=== PATIENT | male | born 1955 | race Caucasian/White ===

== ENCOUNTER 2016-09-06 17:06 | Inpatient (IN) | payer BC ==
[2016-09-06] MEDS ORDERED: traZODone TAB* 50 MG TAB PO PRN (18:29)
[2016-09-06] MEDS ORDERED: oxyCODONE TAB* 5 MG TAB PO PRN (18:35)
[2016-09-06] MEDS ORDERED: Albuterol 2.5 MG/3 ML NEB.SOL* (0.083%) INH PRN (18:36)
[2016-09-06] MEDS ORDERED: cefTRIAXone* 1 GM in NS 0.9% 50 ML BAG IVPB SCH (19:30)
[2016-09-06] MEDS: Metoprolol Succinate XL TAB* 50 MG PO SCH (20:51)
[2016-09-06] MEDS: Morphine TAB Extended Release (*) 15 MG TAB.ER PO SCH (20:51)
[2016-09-06] MEDS: Enoxaparin(*) 40 MG/0.4 ML SYR SUBCUT SCH (20:51)
[2016-09-06] MEDS: NS 0.9% 1000 ML* 1,000 ML IV SCH (21:21)
[2016-09-06] MEDS: Sulfamethox/Trimethoprim DS 800/160* TAB PO SCH (23:52)
[2016-09-07] MEDS: Sulfamethox/Trimethoprim DS 800/160* TAB PO SCH ×4 (05:30→23:24)
[2016-09-07 06:11] LABS: Hematocrit 30 % (42-52); Hemoglobin 9.8 g/dl (14.0-18.0); Mean Corpuscular HGB Conc 32 g/dl (31-36); Mean Corpuscular Hemoglobin 26 pg (27-31); Mean Corpuscular Volume 82 fL (80-94); Mean Platelet Volume 8 um3 (7.4-10.4); Red Cell Distribution Width 16 % (10.5-15); White Blood Count 8.7 10^3/ul (3.5-10.8)
[2016-09-07 06:27] LABS: Albumin 2.8 g/dL (3.2-5.2); BUN/Creatinine Ratio 10.7 (8-20); Calcium 8.5 mg/dL (8.6-10.3); EGFR Non-African American 149.3 (>60); Globulin 3.6 g/dL (2-4); Potassium 3.8 mmol/L (3.5-5.0); Total Bilirubin 0.3 mg/dL (0.2-1.0); Total Protein 6.4 g/dL (6.4-8.9)
[2016-09-07] MEDS: BREO ELLIPTA INH SCH (08:24)
[2016-09-07] MEDS ORDERED: predniSONE TAB* 20 MG PO SCH (08:30)
[2016-09-07] MEDS: NS 0.9% 1000 ML* 1,000 ML IV SCH ×2 (08:34→22:35)
[2016-09-07] MEDS: CMCS: Glimepiride (NF) 2 MG TAB PO SCH (08:40)
[2016-09-07] MEDS: CMCS: Sitagliptin (NF) 50 MG TAB PO SCH ×2 (08:40→18:03)
[2016-09-07] MEDS: metFORMIN* 1,000 MG TAB PO SCH ×2 (08:40→18:03)
[2016-09-07] MEDS: Atorvastatin* 20 MG TAB PO SCH (08:41)
[2016-09-07] MEDS: Azithromycin TAB* 250 MG PO SCH (08:41)
[2016-09-07] MEDS: Venlafaxine EXT RELEASE CAP* 75 MG PO SCH (08:41)
[2016-09-07] MEDS: Valsartan TAB* 160 MG PO SCH (08:41)
[2016-09-07] MEDS: Morphine TAB Extended Release (*) 15 MG TAB.ER PO SCH ×2 (08:42→20:59)
[2016-09-07] MEDS: Metoprolol Succinate XL TAB* 50 MG PO SCH ×2 (08:43→20:59)
--- NOTE | 2016-09-07 09:03 | CONS ---
PULMONARY CONSULTATION REPORT: DATE OF CONSULT: 09/07/16 REASON FOR CONSULT: Evaluation of hypoxemia and CT chest abnormalities. HISTORY OF PRESENT ILLNESS: The patient is a 61-year-old male with history of stage III to IV lung cancer. Initially diagnosed in 2015. The patient had bronchoscopy in October 2015. Biopsy revealed squamous cell carcinoma. Subsequent PET scan showed right perihilar mass, consolidation in right middle lobe, involvement of small area next to left pectoralis and left lower neck and uptake in lower neck. The patient had repeat bronchoscopy and EBUS, which showed benign station 7 lymph node. He was not a surgical candidate secondary to mass invading the right atrial wall with occlusion of superior pulmonary vein and right middle lobe pulmonary artery. The patient subsequently underwent chemotherapy with carbo/Taxol and radiation. He was started on docetaxel/ramucirumab, status post cycle 2 on 08/21/16. The patient has been having fevers and chills, which continued in spite of being treated with Augmentin. The patient was seen by Oncology yesterday for fevers of 101 not improved with Augmentin, chills. Sputum cultures grew H. flu and yeast with normal adeline. He did not have evidence of neutropenia. He was also found to be hypoxemic and cyanotic with O2 sat 88% on room air. The patient denied extremity swelling. He denied diplopia, headaches. Denied hot flashes or night sweats. Had tender left axilla status post radiation. Had dyspnea on exertion, but is gradually worsening. The patient denied chest pain, palpitations, nausea , vomiting, change in bowel habits, heartburn, dysuria, urinary symptoms, and lower extremity edema. He did complain of myalgias. The patient was seen and examined at bedside this morning. The patient is currently on O2 supplementation at 8 L per minute. The patient had CT scan of the chest performed, which was personally reviewed by me - patient did not have evidence of pulmonary embolism. The patient noted to have significant bilateral interstitial and alveolar opacities with some dense consolidations in the dependent areas. The patient also with right infrahilar mass, in the right middle lobe and right loculated pleural effusion, which has not changed compared to the prior CT scan. The patient's left axillary mass is slightly decreased in size. The patient was started on Rocephin, Zithromax for possible community-acquired pneumonia. He was also started on prednisone and Bactrim for presumed PCP pneumonia. PAST MEDICAL HISTORY: 1. Lung cancer diagnosed recently, on chemo. 2. Diabetes. 3. Hypercholesterolemia. 4. Hypertension. PAST SURGICAL HISTORY: 1. Hernia repair in 2015. 2. Shoulder repair in 1975. MEDICATIONS: 1. Albuterol nebulization. 2. Augmentin. 3. Breo. 4. Cannabis. 5. CPAP at night. 6. Dexamethasone 4 mg. 7. Glimepiride. 8. Janumet. 9. Metoprolol. 10. Morphine. 11. Oxycodone. 12. Simvastatin. 13. Valsartan. 14. Venlafaxine. 15. Xanax. FAMILY HISTORY: Mother with lung cancer at age 74. SOCIAL HISTORY: He is . Lives with his . He is a former smoker. Smoked 2 packs per day for 40 years, quit in September 2015. Prior cocaine use, quit 7 years ago. No alcohol abuse. REVIEW OF SYSTEMS: As described above in HPI. PHYSICAL EXAMINATION: The patient in bed in no apparent distress. Vital Signs : Temperature 97.6, pulse 87 beats per minute, respiratory rate 16, O2 sat 94% on 8 L, blood pressure 143/63. HEENT: Pupils equal, reactive to light. Mucous membranes moist. Neck: Supple. No palpable masses. Lymphatic: Palpable 1 to 2 cm left axillary mass. Respiratory: Diminished air entry bilaterally, decreased at bases. Scattered wheeze present. Cardiovascular: Regular rate and rhythm. No murmurs, gallops, or rubs. Abdomen: Soft, nontender, nondistended. Bowel sounds present. Musculoskeletal: Normal range of motion. Neurologic: No focal deficits. Skin: No rash or bruises. DIAGNOSTIC STUDIES/LAB DATA: WBC count 8.7, hemoglobin 9.8, hematocrit 30, platelet count 227. No evidence of neutropenia. Sodium 135, potassium 3.8, chloride 94, bicarb 35, BUN 6, creatinine 0.5, lactic acid 1.6 recently, LDH was not elevated, it was 232. Sputum cultures recently grew haemophilus influenza, susceptibilities are pending. CT of the chest as described above in HPI. IMPRESSION AND RECOMMENDATIONS: 61-year-old male with advanced lung cancer, on chemotherapy, received radiation with worsening fevers, hypoxemia, bilateral interstitial and alveolar opacities. Differentials include infectious cause, viral, bacterial, less likely to be fungal versus inflammatory vs side effect of chemo. Given normal LDH, less likely to be on PCP pneumonia. Being treated for community-acquired pneumonia. Continue with O2 supplementation. Will monitor the patient closely. I did not think he needs bronchoscopy at this time. He also has possible COPD, has wheezing on auscultation. Continue with prednisone with slow taper. Will consider bronchoscopy, if the patient's status continues to decline. Thank you for allowing me to participate in the care of your patient. Will follow up with you. [id number]/[facility] #: [id number] KATE
--- NOTE | 2016-09-07 09:41 | PN ---
Progress Note - Progress Note SOAP: Subjective: []Better then yesterday. Complaint of one week increased SOB, chills and fevers at home. Progressive. No chills last night. Using CPAP. Albuterol (Ventolin 2.5 Mg/3 Ml Neb.Irina*) 2.5 mg INH Q6H PRN PRN Reason: SHORTNESS OF BREATH Alprazolam (Xanax Tab*) 0.5 mg PO TID PRN PRN Reason: ANXIETY Atorvastatin Calcium (Lipitor*) 20 mg PO DAILY [facility] Last Admin: 09/07/16 08:41 Dose: 20 mg Azithromycin (Zithromax Tab*) 500 mg PO DAILY [facility] Stop: 09/11/16 09:01 Last Admin: 09/07/16 08:41 Dose: 500 mg Enoxaparin Sodium (Lovenox(*)) 40 mg SUBCUT Q24H [facility] Last Admin: 09/06/16 20:51 Dose: 40 mg Glimepiride (Glimepiride (Nf)) 2 mg PO DAILY WITH MEAL [facility] Last Admin: 09/07/16 08:40 Dose: 2 mg Sodium Chloride (Ns 0.9% 1000 Ml*) 1,000 mls @ 75 mls/hr IV PER RATE [facility] Last Admin: 09/07/16 08:34 Dose: 75 mls/hr Metformin HCl (Glucophage*) 1,000 mg PO BID WITH MEALS [facility] Last Admin: 09/07/16 08:40 Dose: 1,000 mg Metoprolol Succinate (Toprol Xl Tab*) 50 mg PO BID [facility] Last Admin: 09/07/16 08:43 Dose: 50 mg Morphine Sulfate (Ms Contin(*)) 15 mg PO BID [facility] Last Admin: 09/07/16 08:42 Dose: 15 mg Breo Ellipta 200-25 (Mcg/Inh) 1 admin INH DAILY [facility] Last Admin: 09/07/16 08:24 Dose: Not Given Oxycodone HCl (Roxycodone Tab*) 10 mg PO BID PRN PRN Reason: PAIN Prednisone (Deltasone Tab*) 60 mg PO DAILY WITH MEAL [facility] Sitagliptin Phosphate (Januvia (Nf)) 50 mg PO BID WITH MEALS [facility] Last Admin: 09/07/16 08:40 Dose: 50 mg Trazodone HCl (Desyrel Tab*) 25 mg PO BEDTIME PRN PRN Reason: SLEEP Trimethoprim/Sulfamethoxazole (Bactrim Ds 800/160 Tab*) 2 tab PO Q6HR [facility] Last Admin: 09/07/16 05:30 Dose: 2 tab Valsartan (Diovan Tab*) 320 mg PO DAILY [facility] Last Admin: 09/07/16 08:41 Dose: 320 mg Venlafaxine HCl (Effexor Xr Cap*) 75 mg PO DAILY WITH MEAL [facility] Last Admin: 09/07/16 08:41 Dose: 75 mg Objective: [] Vital Signs Temp Pulse Resp BP Pulse Ox 97.6 F 86 20 135/71 92 09/07/16 04:09 09/07/16 07:26 09/07/16 08:42 09/07/16 07:26 09/07/16 07:26 HEENT - Pale, no thrush. Lungs - Exp wheeze, no crackles, good air movement Car RRR S1S2 Abd - obese, NT/ND Ext - +1 clubbing, no cyanosis. CT bilateral pneumonitis. Decreased LAD. Assessment: [] 61 year old stave IV lung cancer status post progression on nivolumab (last treated 07/03/16) and now on docetaxel and ramcirumab. Presents with diffuse aveolar disease. Differential is CAP, PCP, viral pneumonitis, delayed reaction to nivolumab. Improving on steroids and antibiotics. Plan: []1. Will continue antibiotics. I believe he will be covered for CAP with high dose Bactrim and Azithro, will d/c Ceftriaxone. ID consult pending. 2. Resp. Stable to improved and no distress on exam. Appreciate Pulm input. Given concern for nivolumab reaction will increase Prednisone to 60 mg daily. Continue CPAP. 3. DM. On oral agents, follow on increased steroids. 4. HTN, follow.
--- NOTE | 2016-09-07 12:58 | CONS ---
CONSULTATION REPORT: DATE OF CONSULT: 09/07/16. REQUESTING PHYSICIAN: Cr Cardona MD. CONSULTING SERVICE: Infectious Disease. REASON FOR CONSULT: Pneumonia and respiratory failure. IMPRESSION: 1. Acute hypoxemic respiratory failure, present on admission in the setting of chronic hypercarbic respiratory failure. 2. Pneumonia in the setting of immunocompromised state by monoclonal antibody, chemotherapy, recent radiation and lung cancer; differential diagnosis includes the usual organisms of community-acquired pneumonia including pneumococcus, haemophilus, viral organisms, in this case human metapneumovirus and adenovirus are high on the list. Pneumocystis is a consideration given a diffuse interstitial pattern of his infiltrates; however, the LDH was normal at 230 which argues against it a little bit. Other fungal organisms seem less likely given pattern of cryptococcus is always a consideration in these cases. Nothing supporting a mycobacterial infection. 3. Stage 4 lung cancer, small cell carcinoma, initially diagnosed with right perihilar mass, right plural effusion treated with radiation, carbo/Taxol and most recently docetaxel/ramucirumab. He has a right chest port. 4. Chronic obstructive pulmonary disease. 5. Obstructive sleep apnea. RECOMMENDATIONS: Continue Bactrim and prednisone to cover pneumocystis, which is still possibility or continue azithromycin for the atypical bacterial pathogens and will add human metapneumovirus nasopharyngeal swab, and a serum cryptococcal antigen. HISTORY OF PRESENT ILLNESS: This is a 61-year-old male with squamous cell carcinoma of the lung, stage 4, treated with chemotherapy and radiation, which has improved with chronic corticosteroids. He had about 10 days ago developed fever to 102, which was daily with drenching sweats and rigors. He was not having his port access during that time. Those kind of resolved on their own after a couple of days and then he developed worsening dyspnea on exertion and even dyspnea at rest as of yesterday. He was seen by Yessi Chavez and was started on Augmentin as an outpatient. He is not sure if the fever got better before or after he started that. He also had a sputum culture that grew haemophilus and yeast, a blood culture that was negative on the . Throat swab grew yeast. He had a chest x-ray done as an outpatient that showed progressive airspace disease of the right lower lung morris. A CT of the test was done on the that showed no pulmonary embolus, bilateral interstitial and alveolar infiltrates. To my read looked more likely upper lung morris and there is also the right infrahilar mass with consolidative change in the right middle lobe and a loculated pleural effusion, which is chronic. There is interval decrease in the left axillary mass size. He was started on ceftriaxone, azithromycin, prednisone, and Bactrim. I discussed the case with HIMANSHU Arteaga last night. Today, since he has been here he has had no fever, his breathing feels a little bit more comfortable , he has not had a cough and no chest pain, he has had no neck pain, no difficulty with port, and no urinary symptoms include no dysuria or frequency. No diarrhea. PAST MEDICAL HISTORY: 1. Squamous cell carcinoma of the lung, stage 4 treated with radiation and chemotherapy as above. 2. COPD with chronic hypercarbic respiratory failure. 3. Obstructive sleep apnea on CPAP. 4. Diabetes. 5. Hyperlipidemia. 6. Hypertension. 7. Status post hernia repair. 8. Status post shoulder repair. MEDICATIONS: 1. Xanax p.r.n. 2. Albuterol. 3. Lipitor. 4. Azithromycin 500 mg by mouth daily. 5. Glimepiride. 6. Metoprolol. 7. Bactrim Double Strength tablets by mouth every 6 hours. 8. Valsartan. 9. Effexor. 10. Metformin. 11. Trazodone. 12. Prednisone 60 mg a day. ALLERGIES: PENICILLIN. FAMILY HISTORY: No tuberculosis or recurrent infections. SOCIAL HISTORY: He lives in [place] with his . He has no travel. No sick contacts. He is a former smoker. REVIEW OF SYSTEMS: All negative except as noted above. PHYSICAL EXAM: Vital Signs: Temperature 36, heart rate 80, respiratory rate 20 , blood pressure 130/70, O2 sat 92% on room air. General: He is awake, not in distress. Neurologic: He is oriented x3. Follows all commands. HEENT: There is no conjunctival hemorrhage. No thrush. Neck: Supple without nuchal rigidity. Lymph Nodes: There is no cervical or inguinal lymphadenopathy. Heart : Regular rate and rhythm without murmurs, rubs, or gallops. Lungs: There are diminished breath sounds at the bases bilaterally without wheezes, rales, or rhonchi. Abdomen: Soft, nontender, and nondistended. It is obese. There are bowel sounds present. Skin: There are no rashes or splinter hemorrhages. Musculoskeletal: No spinal tenderness to palpation. No joint synovitis. DIAGNOSTIC STUDIES/LAB DATA: White blood cell count 8, hemoglobin 9, and platelets 227. Creatinine is 0.5, ALT 23. We will add on a CRP to the yesterday 's labs. Please see impression and recommendations outlined above as discussed with HIMANSHU Arteaga [id number]/[facility] #: [id number] [facility]
[2016-09-07] MEDS: ALPRAZolam TAB* 0.5 MG PO PRN (18:07)
[2016-09-07] MEDS: Enoxaparin(*) 40 MG/0.4 ML SYR SUBCUT SCH (21:00)
[2016-09-08] MEDS: Sulfamethox/Trimethoprim DS 800/160* TAB PO SCH ×3 (05:58→17:36)
[2016-09-08 06:24] LABS: Hematocrit 28 % (42-52); Hemoglobin 8.8 g/dl (14.0-18.0); Mean Corpuscular HGB Conc 31 g/dl (31-36); Mean Corpuscular Hemoglobin 26 pg (27-31); Mean Corpuscular Volume 82 fL (80-94); Mean Platelet Volume 8 um3 (7.4-10.4); Red Blood Count 3.42 10^6/ul (4.0-5.4); Red Cell Distribution Width 17 % (10.5-15); White Blood Count 9.1 10^3/ul (3.5-10.8)
[2016-09-08 06:35] LABS: Albumin 2.7 g/dL (3.2-5.2); BUN/Creatinine Ratio 14.8 (8-20); Calcium 8.4 mg/dL (8.6-10.3); EGFR African American 200.3 (>60); EGFR Non-African American 155.7 (>60); Globulin 3.3 g/dL (2-4); Potassium 4.2 mmol/L (3.5-5.0); Total Bilirubin 0.2 mg/dL (0.2-1.0)
[2016-09-08] MEDS: BREO ELLIPTA INH SCH (08:10)
[2016-09-08] MEDS: Venlafaxine EXT RELEASE CAP* 75 MG PO SCH (10:55)
[2016-09-08] MEDS: CMCS: Sitagliptin (NF) 50 MG TAB PO SCH ×2 (10:56→17:35)
[2016-09-08] MEDS: Azithromycin TAB* 250 MG PO SCH (10:57)
[2016-09-08] MEDS: Valsartan TAB* 160 MG PO SCH (10:57)
[2016-09-08] MEDS: Atorvastatin* 20 MG TAB PO SCH (10:57)
[2016-09-08] MEDS: CMCS: Glimepiride (NF) 2 MG TAB PO SCH (10:58)
[2016-09-08] MEDS: metFORMIN* 1,000 MG TAB PO SCH ×2 (10:58→17:36)
[2016-09-08] MEDS: predniSONE TAB* 20 MG PO SCH (10:58)
[2016-09-08] MEDS: Morphine TAB Extended Release (*) 15 MG TAB.ER PO SCH ×2 (10:58→22:07)
[2016-09-08] MEDS: Metoprolol Succinate XL TAB* 50 MG PO SCH ×2 (10:58→22:08)
--- NOTE | 2016-09-08 11:10 | DS ---
DATE OF ADMISSION: 09/06/2016. DATE OF PENDING DISCHARGE: 09/08/2016. PRINCIPAL DIAGNOSES: 1. Atypical pneumonia. 2. COPD exacerbation. 3. History of diabetes type 2. 4. Lung cancer, primary with metastases, under Ramucirumab chemotherapy. DISCHARGE MEDICATIONS: 1. Albuterol nebulizers as previously at home. 2. Alprazolam 0.5 mg p.o. t.i.d. prn anxiety. 3. Atorvastatin 20 mg daily. 4. Azithromycin 500 mg daily. 5. Glimepiride 2 mg p.o. with meals daily. 6. Metformin 1000 mg p.o. b.i.d. with meals. 7. Toprol XL 50 mg b.i.d. 8. Morphine sulfate 15 mg p.o. b.i.d. 9. Breo Ellipta one administration daily inhaled. 10. Oxycodone 10 mg p.o. b.i.d. prn pain. 11. Deltasone 60 mg p.o. daily with meals. 12. Januvia 50 mg p.o. b.i.d. with meals. 13. Bactrim DS two tabs every 6 hours times 10 additional days with the Azithromycin. 14. Valsartan 320 mg daily. 15. Effexor XL 75 mg daily with meals. HOSPITAL COURSE: Briefly, the patient was admitted to the hospital with increasing hypoxia, felt to be in mild respiratory failure with possible atypical pneumonia. Infectious Disease consult was inhenri amezquita, along with a Pulmonary consult as well with Dr. Nguyen. The patient was placed on IV antibi otics, triple to begin with and later stepped down to Bactrim and Azithromycin, along with high dose steroid and the patient improved significantly. His labs remained significantly stable throughout the course of his hospital stay, including his blood glucoses which ranged somewhere on the order of 119 to 234 with steroids. The patient did have a consult with Pulmonary who felt that if his condi tion worsened over his hospital stay, he would be a candidate for a bronchoscopy. Otherwise, they w ould not intervene at this time. The patient reports that he has significant oxygen with humidifica tion at home to maintain his O2 sats somewhere around 90 percent and he does have an oximeter to nicholas t for that. In addition, he will monitor his blood glucoses with a no concentrated sweet diet and c ontinue his oral medications and follow-up with Dr. Gonzáles next week regarding his pneumonia. He will be off his Ramucirumab until his pneumonia improves enough for him to have an additional chemot herapy and he is to call with any further temperatures or increasing symptoms once discharged. HIMANSHU CARABALLO [id number]/[facility] #: [id number]
[2016-09-08] MEDS: NS 0.9% 1000 ML* 1,000 ML IV SCH (12:20)
[2016-09-08] MEDS: ALPRAZolam TAB* 0.5 MG PO PRN ×2 (17:36→22:11)
[2016-09-08] MEDS: Enoxaparin(*) 40 MG/0.4 ML SYR SUBCUT SCH (22:08)
[2016-09-09] MEDS: Sulfamethox/Trimethoprim DS 800/160* TAB PO SCH ×4 (00:47→18:04)
[2016-09-09] MEDS: NS 0.9% 1000 ML* 1,000 ML IV SCH (04:56)
[2016-09-09 07:40] LABS: Hematocrit 31 % (42-52); Hemoglobin 9.7 g/dl (14.0-18.0); Mean Corpuscular HGB Conc 31 g/dl (31-36); Mean Corpuscular Hemoglobin 25 pg (27-31); Mean Corpuscular Volume 82 fL (80-94); Mean Platelet Volume 8 um3 (7.4-10.4); Red Blood Count 3.83 10^6/ul (4.0-5.4); Red Cell Distribution Width 16 % (10.5-15)
[2016-09-09 07:57] LABS: Albumin 2.9 g/dL (3.2-5.2); BUN/Creatinine Ratio 13.3 (8-20); Calcium 8.8 mg/dL (8.6-10.3); EGFR African American 177.4 (>60); EGFR Non-African American 137.9 (>60); Globulin 3.5 g/dL (2-4); Potassium 4.4 mmol/L (3.5-5.0); Total Bilirubin 0.2 mg/dL (0.2-1.0); Total Protein 6.4 g/dL (6.4-8.9)
[2016-09-09] MEDS: BREO ELLIPTA INH SCH (08:42)
[2016-09-09] MEDS: CMCS: Sitagliptin (NF) 50 MG TAB PO SCH ×2 (08:44→18:04)
[2016-09-09] MEDS: CMCS: Glimepiride (NF) 2 MG TAB PO SCH (08:44)
[2016-09-09] MEDS: predniSONE TAB* 20 MG PO SCH (08:45)
[2016-09-09] MEDS: metFORMIN* 1,000 MG TAB PO SCH (08:45)
[2016-09-09] MEDS: Metoprolol Succinate XL TAB* 50 MG PO SCH ×2 (08:46→21:08)
[2016-09-09] MEDS: Venlafaxine EXT RELEASE CAP* 75 MG PO SCH (08:47)
[2016-09-09] MEDS: Atorvastatin* 20 MG TAB PO SCH (08:47)
[2016-09-09] MEDS: Valsartan TAB* 160 MG PO SCH (08:47)
[2016-09-09] MEDS: Azithromycin TAB* 250 MG PO SCH (08:47)
[2016-09-09] MEDS: Morphine TAB Extended Release (*) 15 MG TAB.ER PO SCH ×2 (08:52→21:09)
--- NOTE | 2016-09-09 09:08 | PN ---
Progress Note - Progress Note SOAP: Subjective: []No different, breathing about the same. Feeling ok except for this high HR. No chest pain. Remains on O2. Says he had a high HR in past and was seen by cardiology. Albuterol (Ventolin 2.5 Mg/3 Ml Neb.Irina*) 2.5 mg INH Q6H PRN PRN Reason: SHORTNESS OF BREATH Alprazolam (Xanax Tab*) 0.5 mg PO TID PRN PRN Reason: ANXIETY Last Admin: 09/08/16 22:11 Dose: 0.5 mg Atorvastatin Calcium (Lipitor*) 20 mg PO DAILY [facility] Last Admin: 09/09/16 08:47 Dose: 20 mg Azithromycin (Zithromax Tab*) 500 mg PO DAILY [facility] Stop: 09/11/16 09:01 Last Admin: 09/09/16 08:47 Dose: 500 mg Enoxaparin Sodium (Lovenox(*)) 40 mg SUBCUT Q24H [facility] Last Admin: 09/08/16 22:08 Dose: 40 mg Glimepiride (Glimepiride (Nf)) 2 mg PO DAILY WITH MEAL [facility] Last Admin: 09/09/16 08:44 Dose: 2 mg Sodium Chloride (Ns 0.9% 1000 Ml*) 1,000 mls @ 75 mls/hr IV PER RATE [facility] Last Admin: 09/09/16 04:56 Dose: 75 mls/hr Metformin HCl (Glucophage*) 1,000 mg PO BID WITH MEALS [facility] Last Admin: 09/09/16 08:45 Dose: 1,000 mg Metoprolol Succinate (Toprol Xl Tab*) 50 mg PO BID [facility] Last Admin: 09/09/16 08:46 Dose: 50 mg Morphine Sulfate (Ms Contin(*)) 15 mg PO BID [facility] Last Admin: 09/09/16 08:52 Dose: 15 mg Breo Ellipta 200-25 (Mcg/Inh) 1 admin INH DAILY [facility] Last Admin: 09/09/16 08:42 Dose: Not Given Oxycodone HCl (Roxycodone Tab*) 10 mg PO BID PRN PRN Reason: PAIN Prednisone (Deltasone Tab*) 60 mg PO DAILY WITH MEAL [facility] Last Admin: 09/09/16 08:45 Dose: 60 mg Sitagliptin Phosphate (Januvia (Nf)) 50 mg PO BID WITH MEALS [facility] Last Admin: 09/09/16 08:44 Dose: 50 mg Trazodone HCl (Desyrel Tab*) 25 mg PO BEDTIME PRN PRN Reason: SLEEP Trimethoprim/Sulfamethoxazole (Bactrim Ds 800/160 Tab*) 2 tab PO Q6HR [facility] Last Admin: 09/09/16 07:21 Dose: 2 tab Valsartan (Diovan Tab*) 320 mg PO DAILY [facility] Last Admin: 09/09/16 08:47 Dose: 320 mg Venlafaxine HCl (Effexor Xr Cap*) 75 mg PO DAILY WITH MEAL [facility] Last Admin: 09/09/16 08:47 Dose: 75 mg Objective: [] Vital Signs Temp Pulse Resp BP Pulse Ox 97.4 F 132 16 120/82 98 09/09/16 08:09 09/09/16 08:09 09/09/16 08:52 09/09/16 08:09 09/09/16 08:09 HEENT - pale, no thrush, moist + crackles at base, no wheezing HR tachy but appears regular. Abd - obese, NT/ND Ext with good pulses and warm Assessment: [] 61 year old stave IV lung cancer status post progression on nivolumab (last treated 07/03/16) and now on docetaxel and ramcirumab. Presents with diffuse aveolar disease. Differential is CAP, PCP, viral pneumonitis, delayed reaction to nivolumab. Improving on steroids and antibiotics. Now with tachycardia over last 24 hrs despite Metoprolol 50 mg po bid. Ddx: steriods and anemia, volume overload, PE (CTA negative on admission), recurrent SVT. Plan: []1. Will continue antibiotics. I believe he will be covered for CAP with high dose Bactrim and Azithro. - Plan d/c on home antibiotics once improved. 2. Cardiac. Will check Echo and check BNP. Hold IVF. Cardiology consulted. Continue Metoprolol. Will re-check CTA 3. DM. On oral agents, follow on increased steroids. 4. Resp. Continue steroids.
[2016-09-09] MEDS ORDERED: predniSONE TAB* 20 MG ONE (09:16)
[2016-09-09] MEDS: ALPRAZolam TAB* 0.5 MG PO PRN (09:21)
[2016-09-09] MEDS ORDERED: Iodixanol* (CONTRAST) 320 MG/ML 100 ML SDV IV ONE ×2 (09:47→11:55)
--- NOTE | 2016-09-09 12:54 | RAD ---
Indication: Shortness of breath, tachycardia. Contrast: Administered 80.3 ml of VISIPAQUE 320 mg/ml CTA of the chest was performed after IV contrast administration. Coronal and sagittal reconstructed images were obtained. Comparison is made with previous exam dated September 06, 2016. Pulmonary arterial tree is well opacified. There are no filling defects present to suggest pulmonary embolus. There is pleural thickening in the right apex. Aorta demonstrates no aortic dissection or aneurysmal dilatation. Airspace disease is noted in the right upper lobe consistent with pneumonia. Patchy airspace disease in the right lower lobe is noted also consistent with pneumonia. Areas of alveolitis are noted in the left lung field. The axilla demonstrates no evidence of abnormal adenopathy. Heart demonstrates no pericardial effusion. Persistent right infrahilar mass presumably in the right middle lobe causing postobstructive pneumonia and atelectasis. This has been persistent. There is obvious narrowing of the right middle lobe bronchus.. IMPRESSION: NO DEFINITE PULMONARY EMBOLISM IS NOTED. NO SPECIFIC CHANGES NOTED SINCE EXAM DONE 3 DAYS PRIOR. PERSISTENT AIRSPACE DISEASE IS NOTED. SUGGESTION OF A RIGHT MIDDLE LOBE MASS WITH POSTOBSTRUCTIVE ATELECTASIS AND INFILTRATE. PROGRESSIVE INFILTRATES ARE NOTED IN THE RIGHT UPPER LOBE AND RIGHT LOWER LOBE.
[2016-09-09] MEDS: Diltiazem TAB* 30 MG PO SCH ×2 (13:48→21:08)
[2016-09-09] MEDS: Enoxaparin(*) 40 MG/0.4 ML SYR SUBCUT SCH (21:05)
[2016-09-09] MEDS: Metoprolol Succinate XL TAB* 25 MG PO SCH (21:08)
--- NOTE | 2016-09-09 21:38 | CONS ---
CC: Dr. Cardona; Dr. Chery, Cardiology; Dr. Agudelo CARDIOLOGY CONSULT: DATE OF CONSULT: 09/09/16 HISTORY OF PRESENT ILLNESS: I was asked by Dr. Cardona to see this 61-year-old male patient who was kn own to have a squamous cell cancer of the lung, stage IV, hospitalized for pneumonia and was in a pr eparation to be discharged home when he was found to have tachycardia. His EKG showed him to having a heart rate of 130, not a complex tachycardia, possibly in the differential sinus tachycardia, atr ial flutter or SVT. The patient was seen by Dr. Chery from Cardiology standpoint last year and he had cardiac evaluation and at that time, he was seen for abnormal EKG. Part of his evaluation was a Holter monitor. The Holter monitor showed evidence of sinus tachycardia. There are frequent PVCs 6 300 and he had an echo that showed normal left ventricular systolic function with EF 55% to 60%. Mo derate pulmonary hypertension. The echo was done in 02/11/16. The patient does have history of chr onic obstructive pulmonary disease, history of obstructive sleep apnea, stage IV lung cancer and his tory of chemotherapy. He was seen by Pulmonary as well as by ID. He feels much better actual treat ment with antibiotics treatment and initiation of prednisone. He gives no chest pain. No significa nt shortness of breath. No orthopnea, no PNDs. No dizziness. No syncope. No fever. No chills. N o skin rash. No tremors. No hematochezia. No nausea, no vomiting. No abdominal pain. No syncope is appreciated. He gives no history of coronary artery disease, no history of myocardial infarctio n. No history of congestive heart failure. He is actually anxious to go home. PAST MEDICAL HISTORY: Include history of diabetes mellitus; history of hyperlipidemia; hypertension ; status post hernia repair; status post shoulder repair; history of obstructive sleep apnea, on CPA P; history of COPD with chronic hypercarbic respiratory failure; history of squamous cell cancer of the lungs, stage IV, treated with radiation and chemotherapy; history of PVCs; history of tachycardi a. MEDICATIONS: Include: 1. Ventolin. 2. He is also on Lipitor 20 mg daily. 3. Zithromax 500 mg daily. 4. Lovenox 40 mg subcu q.24 hours. 5. Glimepiride 2 mg daily. 6. Metformin 1000 mg twice a day. 7. Metoprolol 50 mg twice a day. 8. Morphine 50 mg b.i.d. 9. Prednisone 60 mg daily. 10. He is also on Januvia 50 mg twice a day. 11. Bactrim 160 mg 2 tablets p.o. q.6 hours. 12. Diovan 320 mg daily. 13. Effexor 75 mg daily. ALLERGIES: PENICILLIN. FAMILY HISTORY: No family history of premature coronary artery disease. SOCIAL HISTORY: He is . He lives with his . He is a mechanic industrial truck. History of smoking. No alcohol. No history of illicit drug use. REVIEW OF SYSTEMS: His review of all other systems essentially is negative. PHYSICAL EXAM: On exam, he is awake, alert and oriented. He is not in acute distress. He is anxio us to go home. Vitals: Blood pressure 120/82, pulse is 120, regular. He is afebrile at 97.4 with a respiratory rate of 18. Head and Neck Exam: Normocephalic, atraumatic. Ear, nose and throat: E ssentially benign. Neck: Supple. JVP is not elevated. No carotid bruits. No masses in the neck i s appreciated. Chest: Clear to auscultation. No rales. No wheeze. No added sounds appreciated. Heart: Normal, regular. S1, S2. No added sounds. No gallops, no rubs. Abdomen: Benign. Posit alexsandra bowel sounds. Extremities: No edema. No cyanosis. No clubbing. Skin exam is normal. Psych: Normal affect and mood. CALL BOX WIRER: No focal deficits appreciated. DIAGNOSTIC STUDIES/LAB DATA: Sodium 136, potassium 4.4, chloride 98, BUN 8, creatinine 0.60, glucos e 116, LFTs normal. Albumin 2.9, globulin 3.5. His white blood cell 13, hemoglobin 9.7, hematocrit 31 and platelets 285. His EKG showed him to be in sinus rhythm. There is narrow complex tachycardia. Heart rate is 133. This was done yesterday at 10:52 at night. There is no repeat this morning. Possibly in the differ ential includes SVT, sinus tach, atrial flutter. IMPRESSION: The patient is a 61-year-old male patient with: 1. Known history of squamous lung cancer stage IV, on chemotherapy, hospitalized with pneumonia. 2. History of frequent PVCs in the past. 3. History of normal left ventricular systolic function done on February 2016. 4. Tachycardia, narrow complex of unclear etiology at the present time. Possible in the differenti al resting sinus tachycardia. 5. Atrial flutter or supraventricular tachycardia. 6. Diabetes mellitus. 7. Hyperlipidemia. 8. Systemic arterial hypertension. 9. Abnormal EKGs as described. 10. Obstructive sleep apnea. 11. Chronic obstructive pulmonary disease. PLAN: We will obtain a TSH level. He was just evaluated by an echo and Holter in the near past in February of last year. I do not think there is a reason to repeat them. I will increase his metopr olol to 75 mg twice a day. I will add Cardizem at a low dose 30 mg twice a day. I agree with obtai bobby CT to rule out pulmonary embolism. I will obtain another EKG for this morning. I think he nee ds to be monitored on the telemetry floor. I will discuss this further with Dr. Cardona accordingly. I answered all his concerns and questions up to satisfaction. More than half at least 60 plus minut e was [id number] in the education, counseling mode explaining all of the above and answering all h is concerns and questions. [id number]/[facility] #: [id number]
[2016-09-10] MEDS: Sulfamethox/Trimethoprim DS 800/160* TAB PO SCH ×5 (00:03→23:39)
[2016-09-10 06:01] LABS: Hematocrit 30 % (42-52); Hemoglobin 9.6 g/dl (14.0-18.0); Mean Corpuscular HGB Conc 32 g/dl (31-36); Mean Corpuscular Hemoglobin 26 pg (27-31); Mean Corpuscular Volume 81 fL (80-94); Mean Platelet Volume 8 um3 (7.4-10.4); Red Blood Count 3.67 10^6/ul (4.0-5.4); Red Cell Distribution Width 16 % (10.5-15); White Blood Count 12.2 10^3/ul (3.5-10.8)
[2016-09-10 06:17] LABS: BUN/Creatinine Ratio 17.2 (8-20); EGFR African American 164.6 (>60); Globulin 3.3 g/dL (2-4); Potassium 4.7 mmol/L (3.5-5.0); Total Bilirubin 0.2 mg/dL (0.2-1.0); Total Protein 6.3 g/dL (6.4-8.9)
[2016-09-10] MEDS: BREO ELLIPTA INH SCH (07:27)
[2016-09-10] MEDS: CMCS: Sitagliptin (NF) 50 MG TAB PO SCH ×2 (09:55→17:46)
[2016-09-10] MEDS: predniSONE TAB* 20 MG PO SCH (09:55)
[2016-09-10] MEDS: CMCS: Glimepiride (NF) 2 MG TAB PO SCH (09:55)
[2016-09-10] MEDS: Morphine TAB Extended Release (*) 15 MG TAB.ER PO SCH ×2 (09:56→21:30)
[2016-09-10] MEDS: Metoprolol Succinate XL TAB* 25 MG PO SCH ×2 (09:56→21:30)
[2016-09-10] MEDS: Venlafaxine EXT RELEASE CAP* 75 MG PO SCH (09:57)
[2016-09-10] MEDS: Metoprolol Succinate XL TAB* 50 MG PO SCH ×2 (09:57→21:31)
[2016-09-10] MEDS: Valsartan TAB* 160 MG PO SCH (09:58)
[2016-09-10] MEDS: Diltiazem TAB* 30 MG PO SCH ×2 (09:58→21:31)
[2016-09-10] MEDS: Atorvastatin* 20 MG TAB PO SCH (09:58)
[2016-09-10] MEDS: Azithromycin TAB* 250 MG PO SCH (09:58)
--- NOTE | 2016-09-10 18:10 | PN ---
Subjective Date of Service: 09/10/16 Interval History: Patient seen and examined at bedside. Pt states that he is feeling better today , but he has noticed some lightheadedness. He also reports intermittent nausea. He has not moved his bowels in 3-4 days, but reports that he is passing flatus. Using nasal O2 @ 2L, Pt states that this is his home baseline. Denies fever, chills, shortness of breath (above baseline), chest discomfort, V/ D. Family History: Unchanged from Admission Social History: Unchanged from Admission Past Medical History: Unchanged from Admission Objective Active Medications: Albuterol (Ventolin 2.5 Mg/3 Ml Neb.Irina*) 2.5 mg INH Q6H PRN Reason: SHORTNESS OF BREATH Alprazolam (Xanax Tab*) 0.5 mg PO TID PRN Reason: ANXIETY Atorvastatin Calcium (Lipitor*) 20 mg PO DAILY [facility] Azithromycin (Zithromax Tab*) 500 mg PO DAILY [facility] Stop: 09/11/16 09:01 Diltiazem HCl (Cardizem Tab*) 30 mg PO BID [facility] Enoxaparin Sodium (Lovenox(*)) 40 mg SUBCUT Q24H [facility] Glimepiride (Glimepiride (Nf)) 2 mg PO DAILY WITH MEAL [facility] Metformin HCl (Glucophage*) 1,000 mg PO BID WITH MEALS [facility] Metoprolol Succinate (Toprol Xl Tab*) 50 mg PO BID [facility] Metoprolol Succinate (Toprol Xl Tab*) 25 mg PO BID [facility] Morphine Sulfate (Ms Contin(*)) 15 mg PO BID [facility] Breo Ellipta 200-25 (Mcg/Inh) 1 admin INH DAILY [facility] Oxycodone HCl (Roxycodone Tab*) 10 mg PO BID PRN Reason: PAIN Prednisone (Deltasone Tab*) 60 mg PO DAILY WITH MEAL [facility] Sitagliptin Phosphate (Januvia (Nf)) 50 mg PO BID WITH MEALS [facility] Trazodone HCl (Desyrel Tab*) 25 mg PO BEDTIME PRN Reason: SLEEP Trimethoprim/Sulfamethoxazole (Bactrim Ds 800/160 Tab*) 2 tab PO Q6HR [facility] Valsartan (Diovan Tab*) 320 mg PO DAILY [facility] Venlafaxine HCl (Effexor Xr Cap*) 75 mg PO DAILY WITH MEAL [facility] Vital Signs 09/09/16 09/09/1609/09/17 20:00 21:07 21:09 Temperature Pulse Rate 80 Respiratory 16 16 16 Rate Blood Pressure 126/77 (mmHg) O2 Sat by Pulse 100 100 Oximetry 09/09/16 09/09/16 09/10/16 23:09 23:23 03:36 Temperature 97.9 F 97.6 F Pulse Rate 74 70 Respiratory 16 17 17 Rate Blood Pressure 131/75 138/76 (mmHg) O2 Sat by Pulse 99 95 Oximetry 09/10/16 09/10/16 09/10/16 07:25 08:00 09:56 Temperature 97.4 F Pulse Rate 64 Respiratory 18 20 18 Rate Blood Pressure 122/69 (mmHg) O2 Sat by Pulse 100 96 Oximetry 09/10/16 09/10/16 11:56 15:38 Temperature 97.3 F Pulse Rate 76 Respiratory 18 17 Rate Blood Pressure 139/80 (mmHg) O2 Sat by Pulse 96 Oximetry Oxygen Devices in Use Now: Nasal Cannula - 2L Appearance: NAD, sitting up in a chair Eyes: No Scleral Icterus Ears/Nose/Mouth/Throat: Mucous Membranes Moist Respiratory: Symmetrical Chest Expansion and Respiratory Effort, Clear to Auscultation - , diminished Cardiovascular: NL Sounds; No Murmurs; No JVD, RRR Abdominal: NL Sounds; No Tenderness; No Distention Extremities: No Edema Skin: No Rash or Ulcers Neurological: Alert and Oriented x 3, NL Muscle Strength and Tone Lines/Tubes/Other Access: Clean, Dry and Intact Peripheral IV - site benign Nutrition: Taking PO's Result Diagrams: 09/10/16 05:52 09/10/16 05:52 Assess/Plan/Problems-Billing Assessment: Mr. Ivan is a 61 yo male with PMH significant for DM, HLS, HTN, JASON, COPD, chronic hypercarbic respiratory failure and squamous cell lung cancer who presented to the hospital with fevers and was found to have hypoxemia and bilateral intersitital and alveolar opacities. - Patient Problems (1) Pneumonia Code(s): J18.9 - PNEUMONIA, UNSPECIFIED ORGANISM SNOMED Code(s): 061998981 Comment: - Community Acquired Pneumonia - Afebrile, leukocytosis improving - Continue Azithromycin and Bactrim (2) Tachycardia Code(s): R00.0 - TACHYCARDIA, UNSPECIFIED SNOMED Code(s): 1923163 Comment: - Improved with increase in BB - Cardiology consult, input appreciated - Echo pending (3) COPD exacerbation Code(s): J44.1 - CHRONIC OBSTRUCTIVE PULMONARY DISEASE W (ACUTE) EXACERBATION SNOMED Code(s): 011724942 Comment: - Pulmonology consult, input appreciated - Continue Prednisone, Breo and Albuterol nebs PRN (4) Diabetes 1.5, managed as type 2 Code(s): E10.9 - TYPE 1 DIABETES MELLITUS WITHOUT COMPLICATIONS SNOMED Code(s) : 803549075 Comment: - Glucose elevated at times, suspect related to steroids - Continue home medications (5) Lung cancer, primary, with metastasis from lung to other site Code(s): C34.90 - MALIGNANT NEOPLASM OF UNSP PART OF UNSP BRONCHUS OR LUNG SNOMED Code(s): 575711903 Comment: - Management per Onc (6) DVT prophylaxis Code(s): AQG8581 - SNOMED Code(s): 060419246 Comment: - Continue Lovenox (7) Full code status Code(s): Z78.9 - OTHER SPECIFIED HEALTH STATUS SNOMED Code(s): 217073259 Status and Disposition: Inpatient. Discharge to home when medically stable. Echo pending. Plan for discharge in the morning.
[2016-09-10] MEDS: Enoxaparin(*) 40 MG/0.4 ML SYR SUBCUT SCH (21:29)
[2016-09-10] MEDS: Magnesium Hydroxide LIQ* 30 ML UDC PO PRN (21:36)
[2016-09-11] MEDS: Sulfamethox/Trimethoprim DS 800/160* TAB PO SCH ×4 (05:39→23:16)
[2016-09-11 06:06] LABS: Hematocrit 35 % (42-52); Mean Corpuscular HGB Conc 31 g/dl (31-36); Mean Corpuscular Hemoglobin 26 pg (27-31); Mean Corpuscular Volume 82 fL (80-94); Mean Platelet Volume 8 um3 (7.4-10.4); Red Cell Distribution Width 17 % (10.5-15); White Blood Count 12.4 10^3/ul (3.5-10.8)
[2016-09-11 07:11] LABS: BUN/Creatinine Ratio 14.9 (8-20); Calcium 9.5 mg/dL (8.6-10.3); EGFR African American 139.2 (>60); EGFR Non-African American 108.3 (>60); Potassium 5.3 mmol/L (3.5-5.0)
[2016-09-11] MEDS: BREO ELLIPTA INH SCH (08:12)
[2016-09-11] MEDS ORDERED: Ondansetron INJ* 2 MG/ML VIAL ONE (08:48)
[2016-09-11] MEDS: Valsartan TAB* 160 MG PO SCH (10:19)
[2016-09-11] MEDS: Atorvastatin* 20 MG TAB PO SCH (10:19)
[2016-09-11] MEDS: Azithromycin TAB* 250 MG PO SCH (10:20)
[2016-09-11] MEDS: Metoprolol Succinate XL TAB* 50 MG PO SCH ×2 (10:20→20:16)
[2016-09-11] MEDS: Morphine TAB Extended Release (*) 15 MG TAB.ER PO SCH ×2 (10:20→20:16)
[2016-09-11] MEDS: Metoprolol Succinate XL TAB* 25 MG PO SCH ×2 (10:20→20:17)
[2016-09-11] MEDS: metFORMIN* 1,000 MG TAB PO SCH ×2 (10:21→16:58)
[2016-09-11] MEDS: predniSONE TAB* 20 MG PO SCH (10:21)
[2016-09-11] MEDS: Diltiazem TAB* 30 MG PO SCH ×2 (10:21→20:16)
[2016-09-11] MEDS: CMCS: Glimepiride (NF) 2 MG TAB PO SCH (10:21)
[2016-09-11] MEDS: Venlafaxine EXT RELEASE CAP* 75 MG PO SCH (10:21)
[2016-09-11] MEDS: CMCS: Sitagliptin (NF) 50 MG TAB PO SCH ×2 (10:23→16:59)
[2016-09-11] MEDS ORDERED: Ondansetron INJ* 2 MG/ML VIAL IV ONE (12:00)
[2016-09-11] MEDS ORDERED: Polyethylene Glycol 3350* 17 GM PACKET ONE (12:02)
[2016-09-11] MEDS: Ondansetron INJ* 2 MG/ML VIAL IV PRN (12:06)
[2016-09-11] MEDS ORDERED: Polyethylene Glycol 3350* 17 GM PACKET PO PRN (17:00)
[2016-09-11] MEDS: Enoxaparin(*) 40 MG/0.4 ML SYR SUBCUT SCH (20:16)
[2016-09-12] MEDS: Sulfamethox/Trimethoprim DS 800/160* TAB PO SCH ×3 (05:44→17:23)
[2016-09-12] MEDS: Morphine TAB Extended Release (*) 15 MG TAB.ER PO SCH ×2 (09:29→20:21)
[2016-09-12] MEDS: Atorvastatin* 20 MG TAB PO SCH (09:29)
[2016-09-12] MEDS: CMCS: Sitagliptin (NF) 50 MG TAB PO SCH ×2 (09:29→17:23)
[2016-09-12] MEDS: CMCS: Glimepiride (NF) 2 MG TAB PO SCH (09:29)
[2016-09-12] MEDS: Diltiazem TAB* 30 MG PO SCH ×2 (09:30→20:21)
[2016-09-12] MEDS: predniSONE TAB* 20 MG PO SCH (09:30)
[2016-09-12] MEDS: Venlafaxine EXT RELEASE CAP* 75 MG PO SCH (09:30)
[2016-09-12] MEDS: metFORMIN* 1,000 MG TAB PO SCH (09:30)
[2016-09-12] MEDS: Metoprolol Succinate XL TAB* 25 MG PO SCH ×2 (09:33→20:21)
[2016-09-12] MEDS: Metoprolol Succinate XL TAB* 50 MG PO SCH ×2 (09:34→20:21)
[2016-09-12] MEDS: Valsartan TAB* 160 MG PO SCH (09:35)
[2016-09-12] MEDS: BREO ELLIPTA INH SCH (10:50)
[2016-09-12] MEDS: Polyethylene Glycol 3350* 17 GM PACKET PO SCH ×2 (11:58→20:21)
--- NOTE | 2016-09-12 12:10 | PN ---
Progress Note - Progress Note SOAP: Subjective: []Seen this AM and was feeling very well. Denied further nausea after lunch yesterday, though states no interest in food. Denies MAHAJAN or dizziness. No neuro changes he is aware of. Breathing feels a lot better. No BM, but still lots of bowel sounds and flatulence without any pain. Initially planned d/c today, however at approx. noon emesis following bactrim and pt. denied nausea. Medications: Albuterol (Ventolin 2.5 Mg/3 Ml Neb.Irina*) 2.5 mg INH Q6H PRN PRN Reason: SHORTNESS OF BREATH Alprazolam (Xanax Tab*) 0.5 mg PO TID PRN PRN Reason: ANXIETY Last Admin: 09/09/16 09:21 Dose: 0.5 mg Atorvastatin Calcium (Lipitor*) 20 mg PO DAILY [facility] Last Admin: 09/12/16 09:29 Dose: 20 mg Diltiazem HCl (Cardizem Tab*) 30 mg PO BID [facility] Last Admin: 09/12/16 09:30 Dose: 30 mg Enoxaparin Sodium (Lovenox(*)) 40 mg SUBCUT Q24H [facility] Last Admin: 09/11/16 20:16 Dose: 40 mg Glimepiride (Glimepiride (Nf)) 2 mg PO DAILY WITH MEAL [facility] Last Admin: 09/12/16 09:29 Dose: 2 mg Heparin Sodium (Porcine) (Heparin Flush Port (Ivad)) 5 ml FLUSH DAILY [facility] PRN Reason: Protocol Last Admin: 09/12/16 09:31 Dose: 5 ml Magnesium Hydroxide (Milk Of Magnesia Liq*) 30 ml PO Q6H PRN PRN Reason: CONSTIPATION Last Admin: 09/10/16 21:36 Dose: 30 ml Metformin HCl (Glucophage*) 1,000 mg PO BID WITH MEALS [facility] Last Admin: 09/12/16 09:30 Dose: 1,000 mg Metoprolol Succinate (Toprol Xl Tab*) 50 mg PO BID [facility] Last Admin: 09/12/16 09:34 Dose: Not Given Metoprolol Succinate (Toprol Xl Tab*) 25 mg PO BID [facility] Last Admin: 09/12/16 09:33 Dose: Not Given Morphine Sulfate (Ms Contin(*)) 15 mg PO BID [facility] Last Admin: 09/12/16 09:29 Dose: 15 mg Breo Ellipta 200-25 (Mcg/Inh) 1 admin INH DAILY [facility] Last Admin: 09/12/16 10:50 Dose: Not Given Ondansetron HCl (Zofran Inj*) 4 mg IV Q6H PRN PRN Reason: NAUSEA Last Admin: 09/11/16 12:06 Dose: 4 mg Oxycodone HCl (Roxycodone Tab*) 10 mg PO BID PRN PRN Reason: PAIN Polyethylene Glycol/Electrolytes (Miralax*) 17 gm PO 0800,2100 [facility] Last Admin: 09/12/16 11:58 Dose: 17 gm Prednisone (Deltasone Tab*) 60 mg PO DAILY WITH MEAL [facility] Last Admin: 09/12/16 09:30 Dose: 60 mg Sitagliptin Phosphate (Januvia (Nf)) 50 mg PO BID WITH MEALS [facility] Last Admin: 09/12/16 09:29 Dose: 50 mg Trazodone HCl (Desyrel Tab*) 25 mg PO BEDTIME PRN PRN Reason: SLEEP Trimethoprim/Sulfamethoxazole (Bactrim Ds 800/160 Tab*) 2 tab PO Q6HR [facility] Last Admin: 09/12/16 11:58 Dose: 2 tab Valsartan (Diovan Tab*) 320 mg PO DAILY [facility] Last Admin: 09/12/16 09:35 Dose: Not Given Venlafaxine HCl (Effexor Xr Cap*) 75 mg PO DAILY WITH MEAL [facility] Last Admin: 09/12/16 09:30 Dose: 75 mg Objective: [] Vital Signs Temp Pulse Resp BP Pulse Ox 98.3 F 79 18 90/58 96 09/12/16 07:47 09/12/16 07:47 09/12/16 11:27 09/12/16 07:47 09/12/16 08:00 A&Ox3, EOMI, CODY, neuro grossly non-focal HRR, slight murmur noted LS clear bilat. with even and non-labored resp. rate Hyperactive BS, abd. large, soft, and non-tender +PP=bilat., no edema noted Assessment: [] Plan: []1. Intractable vomiting: Urgent MRI of brain w/wo to eval. for mass 2. Hypotension: decrease metropolol again to 25 mg BID 3. Pneumonia: presumed PCP, cont. Bactrim for full 3 week course 4. Constipation: resume miralax daily, cont. ambulation PRN Disposition: if MRI negative may consider sending Mr. Ivan home with planned anti-emetics surrounding Bactrim, although may need to consider imaging of abd. as well for possible partial SBO (though I think unlikely and rather significant constipation)
--- NOTE | 2016-09-12 14:27 | RAD ---
HISTORY: Constipation COMPARISONS: May 10, 2016 VIEWS: Frontal views of the abdomen. FINDINGS: BOWEL: There is a nonobstructive bowel gas pattern. There is a large amount of stool within the colon. CALCULI: There are no abnormal calculi. BONES AND SOFT TISSUES: Degenerative changes are noted OTHER FINDINGS: The lung bases are clear. There is no subphrenic gas. IMPRESSION: NONOBSTRUCTIVE BOWEL GAS PATTERN. LARGE AMOUNT OF STOOL THROUGHOUT THE COLON.
[2016-09-12] MEDS ORDERED: Gadoteridol* (CONTRAST) 279.3 MG/ML 10 ML IV ONE (15:58)
--- NOTE | 2016-09-12 16:57 | RAD ---
Indication: Lung carcinoma. Intractable nausea. Assess for brain metastasis. Comparison: No relevant prior exams available on the [facility] PACS for comparison. Technique: [employer] Ruth 1.5 Marcella [id number] with GEM suite. MRI brain without and with contrast. 20 mL ProHance administered IV. Report: Diffusion series is negative for acute or subacute ischemia. Susceptibility series is negative for stigmata of hemosiderin deposition to indicate previous hemorrhage. Unremarkable cerebral sulci, ventricles, and basal cisterns. Mild increased T2 signal in the periventricular regions of the cerebral hemispheres and 1.3 cm maximum dimension T2 hyperintense lesion within the subcortical white matter at the RIGHT parietal lobe without associated enhancement or mass effect. No enhancing intra or extra-axial lesions evident to raise concern for brain metastasis. No extra-axial fluid collections evident. Unremarkable orbital contents. Preserved major intracranial flow-voids. No suspicious calvarial or skull base lesions evident. Clear paranasal sinuses and mastoid air spaces. IMPRESSION: 1. No enhancing intra or extra-axial lesions or mass effect to raise concern for brain metastasis. 2. Noted white matter signal abnormalities while not entirely specific are most suspicious for chronic small vessel ischemic disease.
[2016-09-12] MEDS: Ondansetron INJ* 2 MG/ML VIAL IV PRN (19:35)
[2016-09-12] MEDS: Enoxaparin(*) 40 MG/0.4 ML SYR SUBCUT SCH (20:22)
[2016-09-13] MEDS: Sulfamethox/Trimethoprim DS 800/160* TAB PO SCH ×5 (00:01→23:53)
[2016-09-13] MEDS: Ondansetron INJ* 2 MG/ML VIAL IV PRN ×2 (05:57→16:56)
[2016-09-13] MEDS: ALPRAZolam TAB* 0.5 MG PO PRN ×2 (07:53→16:56)
[2016-09-13] MEDS: Magnesium Hydroxide LIQ* 30 ML UDC PO PRN ×2 (07:53→20:59)
[2016-09-13] MEDS: Polyethylene Glycol 3350* 17 GM PACKET PO SCH ×2 (07:53→20:58)
[2016-09-13] MEDS: BREO ELLIPTA INH SCH (08:15)
[2016-09-13] MEDS: Metoprolol Succinate XL TAB* 25 MG PO SCH ×2 (08:53→20:59)
[2016-09-13] MEDS: CMCS: Sitagliptin (NF) 50 MG TAB PO SCH ×2 (08:53→16:56)
[2016-09-13] MEDS: Diltiazem TAB* 30 MG PO SCH ×2 (08:53→21:00)
[2016-09-13] MEDS: Atorvastatin* 20 MG TAB PO SCH (08:54)
[2016-09-13] MEDS: Metoprolol Succinate XL TAB* 50 MG PO SCH ×2 (08:54→20:59)
[2016-09-13] MEDS: predniSONE TAB* 20 MG PO SCH (08:54)
[2016-09-13] MEDS: CMCS: Glimepiride (NF) 2 MG TAB PO SCH (08:54)
[2016-09-13] MEDS: Venlafaxine EXT RELEASE CAP* 75 MG PO SCH (08:54)
[2016-09-13] MEDS: Valsartan TAB* 160 MG PO SCH (08:54)
[2016-09-13] MEDS: Morphine TAB Extended Release (*) 15 MG TAB.ER PO SCH ×2 (08:55→21:00)
[2016-09-13 09:39] LABS: Hematocrit 39 % (42-52); Hemoglobin 12.4 g/dl (14.0-18.0); Mean Corpuscular HGB Conc 32 g/dl (31-36); Mean Corpuscular Hemoglobin 26 pg (27-31); Mean Corpuscular Volume 81 fL (80-94); Mean Platelet Volume 8 um3 (7.4-10.4); Red Blood Count 4.84 10^6/ul (4.0-5.4); Red Cell Distribution Width 17 % (10.5-15); White Blood Count 10.9 10^3/ul (3.5-10.8)
[2016-09-13 09:50] LABS: Albumin 3.6 g/dL (3.2-5.2); Calcium 9.5 mg/dL (8.6-10.3); EGFR African American 78.2 (>60); EGFR Non-African American 60.8 (>60); Globulin 3.7 g/dL (2-4); Potassium 5.3 mmol/L (3.5-5.0); Total Bilirubin 0.3 mg/dL (0.2-1.0); Total Protein 7.3 g/dL (6.4-8.9)
[2016-09-13] MEDS ORDERED: Sodium Phosphate ADULT ENEMA* 118 ml bottle PR ONE (10:15)
--- NOTE | 2016-09-13 10:34 | PN ---
Progress Note - Progress Note SOAP: Subjective: still no BMs. very nauseous yesterday and vomiting. no vomiting this am. passing gas. breathing markedly better. Objective: Vital Signs Temp Pulse Resp BP Pulse Ox 97.5 F 83 19 128/68 98 09/13/16 07:34 09/13/16 07:34 09/13/16 08:55 09/13/16 07:34 09/13/16 08:00 lying flat on side in NAD perr eomi op moist cta bl s1 s2 nl obese nt +bs no le edema no left axillary adenopathy A+O x 3, nonfocal neurological exam no rash clean port Laboratory Results - last 24 hr 09/12/16 09/13/16 09/13/16 17:28 00:02 07:43 WBC RBC Hgb Hct MCV MCH MCHC RDW Plt Count MPV Neut % (Auto) Lymph % (Auto) [place] % (Auto) Eos % (Auto) Baso % (Auto) Absolute Neuts (auto) Absolute Lymphs (auto) Absolute Monos (auto) Absolute Eos (auto) Absolute Basos (auto) Absolute Nucleated RBC Nucleated RBC % Sodium Potassium Chloride Carbon Dioxide Anion Gap BUN Creatinine Est GFR ( Amer) Est GFR (Non-Af Amer) BUN/Creatinine Ratio Glucose POC Glucose (mg/dL) 243 H 218 H 148 H Calcium Total Bilirubin AST ALT Alkaline Phosphatase Total Protein Albumin Globulin Albumin/Globulin Ratio 09/13/16 09/13/16 09:00 09:00 WBC 10.9 H RBC 4.84 Hgb 12.4 L Hct 39 L MCV 81 MCH 26 L MCHC 32 RDW 17 H Plt Count 436 MPV 8 Neut % (Auto) 83.4 H Lymph % (Auto) 6.8 L [place] % (Auto) 9.5 H Eos % (Auto) 0.1 Baso % (Auto) 0.2 Absolute Neuts (auto) 9.1 H Absolute Lymphs (auto) 0.7 L Absolute Monos (auto) 1.0 H Absolute Eos (auto) 0 Absolute Basos (auto) 0 Absolute Nucleated RBC 0 Nucleated RBC % 0 Sodium 124 L D Potassium 5.3 H Chloride 83 L Carbon Dioxide 33 H Anion Gap 8 BUN 22 Creatinine 1.22 H Est GFR ( Amer) 78.2 Est GFR (Non-Af Amer) 60.8 BUN/Creatinine Ratio 18.0 Glucose 276 H POC Glucose (mg/dL) Calcium 9.5 Total Bilirubin 0.30 AST 15 ALT 27 Alkaline Phosphatase 100 Total Protein 7.3 Albumin 3.6 Globulin 3.7 Albumin/Globulin Ratio 1.0 Albuterol (Ventolin 2.5 Mg/3 Ml Neb.Irina*) 2.5 mg INH Q6H PRN PRN Reason: SHORTNESS OF BREATH Alprazolam (Xanax Tab*) 0.5 mg PO TID PRN PRN Reason: ANXIETY Last Admin: 09/13/16 07:53 Dose: 0.5 mg Atorvastatin Calcium (Lipitor*) 20 mg PO DAILY [facility] Last Admin: 09/13/16 08:54 Dose: 20 mg Diltiazem HCl (Cardizem Tab*) 30 mg PO BID [facility] Last Admin: 09/13/16 08:53 Dose: 30 mg Enoxaparin Sodium (Lovenox(*)) 40 mg SUBCUT Q24H [facility] Last Admin: 09/12/16 20:22 Dose: 40 mg Glimepiride (Glimepiride (Nf)) 2 mg PO DAILY WITH MEAL [facility] Last Admin: 09/13/16 08:54 Dose: 2 mg Heparin Sodium (Porcine) (Heparin Flush Port (Ivad)) 5 ml FLUSH DAILY [facility] PRN Reason: Protocol Last Admin: 09/13/16 08:54 Dose: 5 ml Sodium Chloride (Ns 0.9% 1000 Ml*) 1,000 mls @ 150 mls/hr IV PER RATE [facility] Lactulose (Lactulose*) 30 ml PO TID [facility] Last Admin: 09/13/16 08:53 Dose: 30 ml Magnesium Hydroxide (Milk Of Magnesia Liq*) 30 ml PO Q6H PRN PRN Reason: CONSTIPATION Last Admin: 09/13/16 07:53 Dose: 30 ml Metformin HCl (Glucophage*) 1,000 mg PO BID WITH MEALS [facility] Metoprolol Succinate (Toprol Xl Tab*) 50 mg PO BID [facility] Last Admin: 09/13/16 08:54 Dose: 50 mg Metoprolol Succinate (Toprol Xl Tab*) 25 mg PO BID [facility] Last Admin: 09/13/16 08:53 Dose: 25 mg Morphine Sulfate (Ms Contin(*)) 15 mg PO BID [facility] Last Admin: 09/13/16 08:55 Dose: 15 mg Breo Ellipta 200-25 (Mcg/Inh) 1 admin INH DAILY [facility] Last Admin: 09/13/16 08:15 Dose: Not Given Ondansetron HCl (Zofran Inj*) 4 mg IV Q6H PRN PRN Reason: NAUSEA Last Admin: 09/13/16 05:57 Dose: 4 mg Oxycodone HCl (Roxycodone Tab*) 10 mg PO BID PRN PRN Reason: PAIN Polyethylene Glycol/Electrolytes (Miralax*) 17 gm PO 0800,2100 [facility] Last Admin: 09/13/16 07:53 Dose: 17 gm Prednisone (Deltasone Tab*) 60 mg PO DAILY WITH MEAL [facility] Last Admin: 09/13/16 08:54 Dose: 60 mg Sitagliptin Phosphate (Januvia (Nf)) 50 mg PO BID WITH MEALS [facility] Last Admin: 09/13/16 08:53 Dose: 50 mg Trazodone HCl (Desyrel Tab*) 25 mg PO BEDTIME PRN PRN Reason: SLEEP Trimethoprim/Sulfamethoxazole (Bactrim Ds 800/160 Tab*) 2 tab PO Q6HR [facility] Last Admin: 09/13/16 05:52 Dose: 2 tab Valsartan (Diovan Tab*) 320 mg PO DAILY [facility] Last Admin: 09/13/16 08:54 Dose: 320 mg Venlafaxine HCl (Effexor Xr Cap*) 75 mg PO DAILY WITH MEAL [facility] Last Admin: 09/13/16 08:54 Dose: 75 mg Assessment: 61 yo M w metastatic lung cancer on palliative docetaxel/ramicurumab presenting with progressive fevers, chills and SOB and found to have bilateral infiltrates suggestive of either PCP PNA or pneumonitis. The clinical course and timing could be suggestive of either PCP PNA or nivoliumab induced pneumonitis (though the latter is less likely to be associated with fevers). He is markedly improved clinically on steroids and bactrim. Plan: pneumonia: PCP, vs. atypical vs. nivolumab pneumonitis on bactrim and steroids and markedly improved Dr. Daigle to follow up today and help guide length of treatment constipation: severe obstipation without obstruction -got miralax, MOM, and lactulose at 8 am -add fleet's enema -if NO BM by 2 pm will add golytely prep. no evidence of obstruction at this time. should be noted risk of perforation with ramicurumab. will observe closely hyponatremia and hypokalemia: suspect hypovolemic in etiology given vomiting and poor PO intake, though bactrim can also cause hypokalemia and increased creatinine will gently hydrate today and recheck in AM DM: ok control right now. will need to watch closely on steroids lovenox dvt prophylaxis
[2016-09-13] MEDS ORDERED: PEG 3000 GI LAVAGE* 1 GALLON PO ONE (11:30)
[2016-09-13] MEDS: NS 0.9% 1000 ML* 1,000 ML IV SCH ×2 (12:52→22:13)
[2016-09-13] MEDS ORDERED: Sodium Phosphate ADULT ENEMA* 118 ml bottle PR PRN (19:07)
[2016-09-13] MEDS: Enoxaparin(*) 40 MG/0.4 ML SYR SUBCUT SCH (21:02)
[2016-09-14] MEDS: NS 0.9% 1000 ML* 1,000 ML IV SCH ×5 (03:17→18:39)
[2016-09-14] MEDS: Sulfamethox/Trimethoprim DS 800/160* TAB PO SCH ×3 (05:13→23:10)
[2016-09-14 07:41] LABS: Hematocrit 36 % (42-52); Hemoglobin 11.2 g/dl (14.0-18.0); Mean Corpuscular HGB Conc 31 g/dl (31-36); Mean Corpuscular Hemoglobin 26 pg (27-31); Mean Corpuscular Volume 82 fL (80-94); Mean Platelet Volume 8 um3 (7.4-10.4); Red Blood Count 4.37 10^6/ul (4.0-5.4); Red Cell Distribution Width 17 % (10.5-15); White Blood Count 9.8 10^3/ul (3.5-10.8)
[2016-09-14 07:45] LABS: Albumin 3.2 g/dL (3.2-5.2); BUN/Creatinine Ratio 18.6 (8-20); Calcium 8.3 mg/dL (8.6-10.3); EGFR African American 81.3 (>60); EGFR Non-African American 63.2 (>60); Magnesium 2.5 mg/dL (1.9-2.7); Potassium 5.1 mmol/L (3.5-5.0); Total Bilirubin 0.2 mg/dL (0.2-1.0); Total Protein 6.2 g/dL (6.4-8.9)
[2016-09-14] MEDS: BREO ELLIPTA INH SCH (07:53)
[2016-09-14] MEDS: Polyethylene Glycol 3350* 17 GM PACKET PO SCH ×2 (08:05→23:10)
[2016-09-14] MEDS: Metoprolol Succinate XL TAB* 25 MG PO SCH ×2 (08:06→23:08)
[2016-09-14] MEDS: Morphine TAB Extended Release (*) 15 MG TAB.ER PO SCH ×2 (08:06→23:08)
[2016-09-14] MEDS: Metoprolol Succinate XL TAB* 50 MG PO SCH ×2 (08:06→23:09)
[2016-09-14] MEDS: CMCS: Sitagliptin (NF) 50 MG TAB PO SCH ×2 (08:16→17:32)
[2016-09-14] MEDS: Venlafaxine EXT RELEASE CAP* 75 MG PO SCH (08:17)
[2016-09-14] MEDS: CMCS: Glimepiride (NF) 2 MG TAB PO SCH (08:17)
[2016-09-14] MEDS: predniSONE TAB* 20 MG PO SCH (08:18)
[2016-09-14] MEDS ORDERED: predniSONE TAB* 50 MG PO SCH (09:11)
[2016-09-14] MEDS ORDERED: NS 0.9% 500 ML BAG* 500 ML IV ONE (10:00)
[2016-09-14] MEDS ORDERED: Valsartan TAB* 160 MG ONE (10:39)
--- NOTE | 2016-09-14 10:41 | PN ---
Progress Note - Progress Note SOAP: Subjective: []Has felt poorly over past day. Not eating much. Constipation and had large BM yesterday. No fever or chills. Active Medications Generic Name Dose Route Start Last Admin Trade Name Freq PRN Reason Stop Dose Admin Albuterol 2.5 mg 09/06/16 18:36 Ventolin 2.5 Mg/3 Ml Neb.Irina* INH Q6H PRN SHORTNESS OF BREATH Alprazolam 0.5 mg 09/06/16 18:36 09/13/16 16:56 Xanax Tab* PO 0.5 mg TID PRN Administration ANXIETY Atorvastatin Calcium 20 mg 09/07/16 09:00 09/13/16 08:54 Lipitor* PO 20 mg DAILY [facility] Administration Diltiazem HCl 30 mg 09/09/16 13:00 09/13/16 21:00 Cardizem Tab* PO Not Given BID [facility] Enoxaparin Sodium 40 mg 09/06/16 21:00 09/13/16 21:02 Lovenox(*) SUBCUT 40 mg Q24H [facility] Administration Glimepiride 2 mg 09/07/16 08:30 09/14/16 08:17 Glimepiride (Nf) PO 2 mg DAILY WITH MEAL [facility] Administration Heparin Sodium (Porcine) 5 ml 09/11/16 10:00 09/13/16 08:54 Heparin Flush Port (Ivad) FLUSH 5 ml DAILY [facility] Administration Protocol Sodium Chloride 1,000 mls @ 150 mls/hr 09/13/16 10:30 09/14/16 05:15 Ns 0.9% 1000 Ml* IV 150 mls/hr PER RATE [facility] Administration Sodium Chloride 1,000 mls @ 1,000 mls/hr 09/14/16 03:00 09/14/16 04:05 Ns 0.9% 1000 Ml* IV 09/15/16 03:59 1,000 mls/hr PER RATE [facility] Administration Wide Open Lactulose 30 ml 09/12/16 21:00 09/14/16 08:06 Lactulose* PO Not Given TID [facility] Magnesium Hydroxide 30 ml 09/10/16 21:01 09/13/16 20:59 Milk Of Magnesia Liq* PO 30 ml Q6H PRN Administration CONSTIPATION Metformin HCl 1,000 mg 09/14/16 17:00 Glucophage* PO BID WITH MEALS [facility] Metoprolol Succinate 50 mg 09/09/16 21:00 09/14/16 08:06 Toprol Xl Tab* PO Not Given BID [facility] Metoprolol Succinate 25 mg 09/09/16 21:00 09/14/16 08:06 Toprol Xl Tab* PO Not Given BID [facility] Morphine Sulfate 15 mg 09/06/16 21:00 09/14/16 08:06 Ms Contin(*) PO Not Given BID [facility] Breo Ellipta 200-25 1 admin 09/07/16 09:00 09/14/16 07:53 Mcg/Inh INH Not Given DAILY [facility] Ondansetron HCl 4 mg 09/11/16 09:39 09/13/16 16:56 Zofran Inj* IV 4 mg Q6H PRN Administration NAUSEA Oxycodone HCl 10 mg 09/06/16 18:35 Roxycodone Tab* PO BID PRN PAIN Polyethylene Glycol/Electrolytes 17 gm 09/12/16 12:00 09/14/16 08:05 Miralax* PO Not Given 0800,2100 [facility] Prednisone 50 mg 09/14/16 09:11 Deltasone Tab* PO DAILY WITH MEAL [facility] Sitagliptin Phosphate 50 mg 09/07/16 08:00 09/14/16 08:16 Januvia (Nf) PO 50 mg BID WITH MEALS [facility] Administration Sodium Biphosphate/Sodium Phosphate 1 bottle 09/13/16 19:07 Fleet Enema* SC ONCE PRN CONSTIPATION Trazodone HCl 25 mg 09/06/16 18:29 Desyrel Tab* PO BEDTIME PRN SLEEP Trimethoprim/Sulfamethoxazole 2 tab 09/07/16 00:00 09/14/16 05:13 Bactrim Ds 800/160 Tab* PO 2 tab Q6HR [facility] Administration Venlafaxine HCl 75 mg 09/07/16 08:30 09/14/16 08:17 Effexor Xr Cap* PO 75 mg DAILY WITH MEAL [facility] Administration Objective: [] Vital Signs Temp Pulse Resp BP Pulse Ox 97.3 F 81 16 98/46 99 09/14/16 08:39 09/14/16 08:39 09/14/16 08:39 09/14/16 08:39 09/14/16 08:39 HEENT - pale, no thrush, moist CTA HR 80s and irregular. Abd - obese, NT/ND Ext with good pulses and warm Assessment: [] 61 year old stave IV lung cancer status post progression on nivolumab (last treated 07/03/16) and now on docetaxel and ramcirumab. Presents with diffuse aveolar disease. Differential is CAP, PCP, viral pneumonitis, delayed reaction to nivolumab. Improving on steroids and antibiotics. Course complicated by tachycardia, now with effective rate control. Today decreased BP. Has increased in Cr over past 2 days. I suspect dehydration and low volume combined with rate control medication lead to hypertension. Plan: []1. Will continue antibiotics. Decrease in Prednisone to 50 mg per day. 2. Cardiac. NS at 150/hr after fluid bolus overnight. Cardiology re-consulted and discussed case with Dr. Chery. Check Echo and modify medications. 3. DM. continue current therapy. 4. GI. Encouraged po, ate better this am after BM. 5. Possible D/C tomorrow if feeling better.
[2016-09-14] MEDS: Atorvastatin* 20 MG TAB PO SCH (10:48)
[2016-09-14] MEDS ORDERED: Perflutren Lipid Microsphere* 3 ML VIAL ONE (11:11)
[2016-09-14] MEDS: Diltiazem TAB* 30 MG PO SCH (11:49)
[2016-09-14] MEDS: Valsartan TAB* 160 MG PO SCH (11:50)
--- NOTE | 2016-09-14 12:08 | PN ---
Subjective Date of Service: 09/14/16 Interval History: f/u arrhythmia, hypotension Medications Active Medications: Albuterol (Ventolin 2.5 Mg/3 Ml Neb.Irina*) 2.5 mg INH Q6H PRN PRN Reason: SHORTNESS OF BREATH Alprazolam (Xanax Tab*) 0.5 mg PO TID PRN PRN Reason: ANXIETY Last Admin: 09/13/16 16:56 Dose: 0.5 mg Atorvastatin Calcium (Lipitor*) 20 mg PO DAILY [facility] Last Admin: 09/14/16 10:48 Dose: 20 mg Diltiazem HCl (Cardizem Tab*) 30 mg PO BID [facility] Last Admin: 09/14/16 11:49 Dose: Not Given Enoxaparin Sodium (Lovenox(*)) 40 mg SUBCUT Q24H [facility] Last Admin: 09/13/16 21:02 Dose: 40 mg Glimepiride (Glimepiride (Nf)) 2 mg PO DAILY WITH MEAL [facility] Last Admin: 09/14/16 08:17 Dose: 2 mg Heparin Sodium (Porcine) (Heparin Flush Port (Ivad)) 5 ml FLUSH DAILY [facility] PRN Reason: Protocol Last Admin: 09/14/16 11:49 Dose: Not Given Sodium Chloride (Ns 0.9% 1000 Ml*) 1,000 mls @ 150 mls/hr IV PER RATE [facility] Last Admin: 09/14/16 10:47 Dose: 150 mls/hr Sodium Chloride (Ns 0.9% 1000 Ml*) 1,000 mls @ 1,000 mls/hr IV PER RATE [facility] PRN Reason: Wide Open Stop: 09/15/16 03:59 Last Admin: 09/14/16 04:05 Dose: 1,000 mls/hr Lactulose (Lactulose*) 30 ml PO TID [facility] Last Admin: 09/14/16 08:06 Dose: Not Given Magnesium Hydroxide (Milk Of Magnesia Liq*) 30 ml PO Q6H PRN PRN Reason: CONSTIPATION Last Admin: 09/13/16 20:59 Dose: 30 ml Metformin HCl (Glucophage*) 1,000 mg PO BID WITH MEALS [facility] Metoprolol Succinate (Toprol Xl Tab*) 50 mg PO BID [facility] Last Admin: 09/14/16 08:06 Dose: Not Given Metoprolol Succinate (Toprol Xl Tab*) 25 mg PO BID [facility] Last Admin: 09/14/16 08:06 Dose: Not Given Morphine Sulfate (Ms Contin(*)) 15 mg PO BID [facility] Last Admin: 09/14/16 08:06 Dose: Not Given Breo Ellipta 200-25 (Mcg/Inh) 1 admin INH DAILY [facility] Last Admin: 09/14/16 07:53 Dose: Not Given Ondansetron HCl (Zofran Inj*) 4 mg IV Q6H PRN PRN Reason: NAUSEA Last Admin: 09/13/16 16:56 Dose: 4 mg Oxycodone HCl (Roxycodone Tab*) 10 mg PO BID PRN PRN Reason: PAIN Polyethylene Glycol/Electrolytes (Miralax*) 17 gm PO 0800,2100 [facility] Last Admin: 09/14/16 08:05 Dose: Not Given Prednisone (Deltasone Tab*) 50 mg PO DAILY WITH MEAL [facility] Sitagliptin Phosphate (Januvia (Nf)) 50 mg PO BID WITH MEALS [facility] Last Admin: 09/14/16 08:16 Dose: 50 mg Sodium Biphosphate/Sodium Phosphate (Fleet Enema*) 1 bottle [place] ONCE PRN PRN Reason: CONSTIPATION Trazodone HCl (Desyrel Tab*) 25 mg PO BEDTIME PRN PRN Reason: SLEEP Trimethoprim/Sulfamethoxazole (Bactrim Ds 800/160 Tab*) 2 tab PO Q6HR [facility] Last Admin: 09/14/16 05:13 Dose: 2 tab Venlafaxine HCl (Effexor Xr Cap*) 75 mg PO DAILY WITH MEAL [facility] Last Admin: 09/14/16 08:17 Dose: 75 mg Objective Vital Signs: Temp Pulse Resp BP Pulse Ox 97.7 F 89 20 104/61 96 09/14/16 11:47 09/14/16 11:47 09/14/16 11:47 09/14/16 11:47 09/14/16 11:47 Oxygen Devices in Use Now: Nasal Cannula - 2L Laboratory Results: 09/14/16 05:27 09/14/16 05:27 Total Bilirubin 0.20 mg/dL (0.2-1.0) 09/14/16 05:27 AST 11 U/L (13-39) L 09/14/16 05:27 ALT 22 U/L (7-52) 09/14/16 05:27 Alkaline Phosphatase 85 U/L (34-104) 09/14/16 05:27 B-Natriuretic Peptide 470 pg/mL (-100) H 09/09/16 11:00 Total Protein 6.2 g/dL (6.4-8.9) L 09/14/16 05:27 Albumin 3.2 g/dL (3.2-5.2) 09/14/16 05:27 Globulin 3.0 g/dL (2-4) 09/14/16 05:27 Albumin/Globulin Ratio 1.1 (1-3) 09/14/16 05:27 TSH 0.96 mcIU/mL (0.34-5.60) 09/09/16 15:30
--- NOTE | 2016-09-14 12:17 | ECHO ---
Patient: ISMA HEADLEY [facility] Rec#: [id number] : 1955 Date: 09/14/2016 Age: 61y Height: 180.34 cm / 71.0 in Weight: 115.67 kg / 254.9 lbs Sex: M BSA: 2.34 Room#: 435 Admit Date#: 09/06/2016 Type: Inpatient Referring: Ivan Chery DO Reading: Ivan Chery DO Virtualization Engineer: Marie Augustine RDCS,RDMS CC: Estephania Clay MD Transthoracic Echocardiogram Indication: Hypotension, Afib BP: 94/46 HR: 84 Rhythm: NSR Findings History: Lung cancer, chemo, COPD, HTN, HLD, DM, JASON Technical Comments: The study is technically limited due to the patient's history of COPD. COmpleted 1155 Left Ventricle: The left ventricular chamber size is mildly dilated. Mild concentric left ventricular hypertrophy is observed. Global left ventricular wall motion and contractility are within normal limits. There is normal left ventricular systolic function. The estimated ejection fraction is 55-60%. There is no consistent Doppler evidence of clinically significant diastolic dysfunction. Left Atrium: The left atrium is mildly dilated. Right Ventricle: The right ventricular cavity size is normal. The right ventricular global systolic function is normal. Right Atrium: The right atrium is not well visualized. Aortic Valve: The aortic valve is trileaflet. Systolic excursion of the aortic valve is normal. There is no evidence of aortic regurgitation. There is no evidence of aortic stenosis. Mitral Valve: The mitral valve leaflets appear normal. There is no evidence of mitral regurgitation. There is no evidence of mitral stenosis. Tricuspid Valve: The tricuspid valve leaflets are normal. There is trace tricuspid regurgitation. Unable to estimate the right ventricular systolic pressure. Pulmonic Valve: There is no evidence of pulmonic valve thickening. There is a trace pulmonic regurgitation. Pericardium: There is no significant pericardial effusion. Aorta: The ascending aorta is not well visualized. There is no dilatation of the aortic arch. The aortic root is normal in size. Pulmonary Artery: The main pulmonary artery is not well visualized. Venous: The inferior vena cava is not visualized. Contrast: Definity was used to optimize study. A total of 3ml was used. Conclusions The left ventricular chamber size is mildly dilated. Mild concentric left ventricular hypertrophy is observed. There is normal left ventricular systolic function. The estimated ejection fraction is 55-60%. The left atrium is mildly dilated. The right ventricle is not well visualized although appears to have grossly normal size and function The right atrium is not well visualized. Unable to estimate the right ventricular systolic pressure. No significant valvular abnormalities noted There is no significant pericardial effusion. The IVC, pulmonary veins and pulmonary arteries are not well visualized. Compared to prior study from 02/2016, the estimated PASP is not able to be evaluated (was moderately increased previously) Measurements Name Value Normal Range RVIDd (AP) 2D 2.7 cm (0.9 - 2.6) IVSd (2D) 1.3 cm (0.6 - 1) LVPWd (2D) 1.2 cm (0.6 - 1) LVIDd (2D) 5.5 cm (3.6 - 5.4) LVIDs (2D) 3.4 cm - LV FS (2D) 39 % (25 - 45) Aortic Annulus 2.2 cm (1.4 - 2.6) Ao root diameter (2D) 3.2 cm (2.1 - 3.5) Aortic arch 3.1 cm (1.8 - 3.4) LA dimension (AP) 2D 4.4 cm (2.3 - 3.8) LAd ISD 4CH 5.7 cm (2.9 - 5.3) LA ISD 4CH W 5 cm (2.5 - 4.5) Name Value Normal Range LA ESV SP 4CH (A/L) 72.76 ml - LA ESV SP 2CH (A/L) 49.92 ml - LA ESV BP (A/L) 61.55 ml - LA ESV BP (A/L) index 26.3 ml/m2 - LA ESV SP 4CH (MOD) 65.56 ml - LA ESV SP 2CH (MOD) 46.85 ml - Name Value Normal Range MV E-wave Vmax 0.7 m/sec - MV deceleration time 151.5 msec - MV A-wave Vmax 0.5 m/sec - MV E:A ratio 1.4 ratio - LV septal e' Vmax 0.07 m/sec - LV lateral e' Vmax 0.11 m/sec - LV E:e' septal ratio 10 ratio - LV E:e' lateral ratio 6.4 ratio - Name Value Normal Range AV Vmax 1.4 m/sec - AV VTI 24.2 cm - AV peak gradient 8 mmHg - AV mean gradient 4.3 mmHg - LVOT Vmax 1 m/sec - LVOT VTI 19.2 cm - LVOT peak gradient 4 mmHg - LVOT mean gradient 2.1 mmHg - [place] Vmax 0.6 m/sec - Name Value Normal Range RAP 8 mmHg - Name Value Normal Range PV Vmax 0.8 m/sec - PV peak gradient 2.6 mmHg -
--- NOTE | 2016-09-14 13:04 | PN ---
Subjective Date of Service: 09/14/16 Interval History: f/u arrhythmia, hypotension patient's bp this AM 70'/40's now improved with IVF SBP > 100 No cp, change in breathing, lightheadedness or syncope tele: appears sinus rhythm Medications Active Medications: Albuterol (Ventolin 2.5 Mg/3 Ml Neb.Irina*) 2.5 mg INH Q6H PRN PRN Reason: SHORTNESS OF BREATH Alprazolam (Xanax Tab*) 0.5 mg PO TID PRN PRN Reason: ANXIETY Last Admin: 09/13/16 16:56 Dose: 0.5 mg Atorvastatin Calcium (Lipitor*) 20 mg PO DAILY [facility] Last Admin: 09/14/16 10:48 Dose: 20 mg Diltiazem HCl (Cardizem Tab*) 30 mg PO BID [facility] Last Admin: 09/14/16 11:49 Dose: Not Given Enoxaparin Sodium (Lovenox(*)) 40 mg SUBCUT Q24H [facility] Last Admin: 09/13/16 21:02 Dose: 40 mg Glimepiride (Glimepiride (Nf)) 2 mg PO DAILY WITH MEAL [facility] Last Admin: 09/14/16 08:17 Dose: 2 mg Heparin Sodium (Porcine) (Heparin Flush Port (Ivad)) 5 ml FLUSH DAILY [facility] PRN Reason: Protocol Last Admin: 09/14/16 11:49 Dose: Not Given Sodium Chloride (Ns 0.9% 1000 Ml*) 1,000 mls @ 150 mls/hr IV PER RATE [facility] Last Admin: 09/14/16 10:47 Dose: 150 mls/hr Sodium Chloride (Ns 0.9% 1000 Ml*) 1,000 mls @ 1,000 mls/hr IV PER RATE [facility] PRN Reason: Wide Open Stop: 09/15/16 03:59 Last Admin: 09/14/16 04:05 Dose: 1,000 mls/hr Lactulose (Lactulose*) 30 ml PO TID [facility] Last Admin: 09/14/16 12:57 Dose: Not Given Magnesium Hydroxide (Milk Of Magnesia Liq*) 30 ml PO Q6H PRN PRN Reason: CONSTIPATION Last Admin: 09/13/16 20:59 Dose: 30 ml Metformin HCl (Glucophage*) 1,000 mg PO BID WITH MEALS [facility] Metoprolol Succinate (Toprol Xl Tab*) 50 mg PO BID [facility] Last Admin: 09/14/16 08:06 Dose: Not Given Metoprolol Succinate (Toprol Xl Tab*) 25 mg PO BID [facility] Last Admin: 09/14/16 08:06 Dose: Not Given Mometasone Furoate/Formoterol Fumar (Dulera 200/5 Mdi*) 2 puff INH BID [facility] Morphine Sulfate (Ms Contin(*)) 15 mg PO BID [facility] Last Admin: 09/14/16 08:06 Dose: Not Given Ondansetron HCl (Zofran Inj*) 4 mg IV Q6H PRN PRN Reason: NAUSEA Last Admin: 09/13/16 16:56 Dose: 4 mg Oxycodone HCl (Roxycodone Tab*) 10 mg PO BID PRN PRN Reason: PAIN Polyethylene Glycol/Electrolytes (Miralax*) 17 gm PO 0800,2100 [facility] Last Admin: 09/14/16 08:05 Dose: Not Given Prednisone (Deltasone Tab*) 50 mg PO DAILY WITH MEAL [facility] Sitagliptin Phosphate (Januvia (Nf)) 50 mg PO BID WITH MEALS [facility] Last Admin: 09/14/16 08:16 Dose: 50 mg Sodium Biphosphate/Sodium Phosphate (Fleet Enema*) 1 bottle [place] ONCE PRN PRN Reason: CONSTIPATION Trazodone HCl (Desyrel Tab*) 25 mg PO BEDTIME PRN PRN Reason: SLEEP Trimethoprim/Sulfamethoxazole (Bactrim Ds 800/160 Tab*) 2 tab PO Q6HR [facility] Last Admin: 09/14/16 05:13 Dose: 2 tab Venlafaxine HCl (Effexor Xr Cap*) 75 mg PO DAILY WITH MEAL [facility] Last Admin: 09/14/16 08:17 Dose: 75 mg Objective Vital Signs: Temp Pulse Resp BP Pulse Ox 97.7 F 89 20 104/61 96 09/14/16 11:47 09/14/16 11:47 09/14/16 11:47 09/14/16 11:47 09/14/16 11:47 Oxygen Devices in Use Now: Nasal Cannula - 2L Laboratory Results: 09/14/16 05:27 09/14/16 05:27 Total Bilirubin 0.20 mg/dL (0.2-1.0) 09/14/16 05:27 AST 11 U/L (13-39) L 09/14/16 05:27 ALT 22 U/L (7-52) 09/14/16 05:27 Alkaline Phosphatase 85 U/L (34-104) 09/14/16 05:27 B-Natriuretic Peptide 470 pg/mL (-100) H 09/09/16 11:00 Total Protein 6.2 g/dL (6.4-8.9) L 09/14/16 05:27 Albumin 3.2 g/dL (3.2-5.2) 09/14/16 05:27 Globulin 3.0 g/dL (2-4) 09/14/16 05:27 Albumin/Globulin Ratio 1.1 (1-3) 09/14/16 05:27 TSH 0.96 mcIU/mL (0.34-5.60) 09/09/16 15:30 Diagnostic Imaging: CT PE study 09/09/2016: No definite PE, RML mass iwth post-obstructive atelectasis and progressive infiltrates noted in RUL and RLL TTE today with definity. Normal LV size and function LVEF 60%, limited RV evaluation but appeared normal, no significant valvular abnormalities noted, no significant pericardial effusion. Large veins/arteries not well visualized EKG Data: teletry Appears sinus rhythm ekg nsr, normal ekg Assessment/Plan Mr. Ivan's arrhythmia has resolved. His hypotension has resolved with IV fluids. His echocardiogram shows no reason for the hypotension I would stop the valsartan and cardizem (ordered) as they may have been contributing to hypotension as well. Would continue the metoprolol at current dosing Thank you for allowing me to participate in the cardiovascular care of this patient. Please call with questions
--- NOTE | 2016-09-14 14:44 | PN ---
Progress Note - Progress Note SOAP: Subjective: DOS: 09/14/16 CC: 61 yo man with lung cancer, recent chemotherapy, corticosteroids, MAb treatment. Admitted with fever, cough, dyspnea, bilateral pulmonary infiltrates on CT. Cough and shortness of breath improving with current treatment. No fever rash or diarrhea. Did have nausea, no abd pain. Objective: [] Vital Signs Temp 36.5 C 09/14/16 11:47 Pulse 89 09/14/16 11:47 Resp 20 09/14/16 11:47 BP 104/61 09/14/16 11:47 Pulse Ox 96 09/14/16 11:47 Intake & Output 09/13/16 09/14/16 09/14/16 18:59 06:59 18:59 Intake Total 970 440 340 Balance 970 440 340 Intake: Oral 970 440 340 Other: Estimated Void Medium Medium # Bowel Movements 5 0 Estimated Stool Amount Small # Voids 3 4 2 Gen:awake, no distress HEENT:PERRL, MMM Neck:supple Heart:RRR no murmur Lungs:decr BS R base no wheeze Abd:+BS NTND soft Skin: no rash MSK: no spine tenderness 09/11/16 09/11/16 09/12/16 16:58 23:18 07:28 WBC RBC Hgb Hct MCV MCH MCHC RDW Plt Count MPV Neut % (Auto) Lymph % (Auto) [place] % (Auto) Eos % (Auto) Baso % (Auto) Absolute Neuts (auto) Absolute Lymphs (auto) Absolute Monos (auto) Absolute Eos (auto) Absolute Basos (auto) Absolute Nucleated RBC Nucleated RBC % Sodium Potassium Chloride Carbon Dioxide Anion Gap BUN Creatinine Est GFR ( Amer) Est GFR (Non-Af Amer) BUN/Creatinine Ratio Glucose POC Glucose (mg/dL) 293 H 202 H 111 H Calcium Magnesium Total Bilirubin AST ALT Alkaline Phosphatase Total Protein Albumin Globulin Albumin/Globulin Ratio 09/12/16 09/13/16 09/13/16 17:28 00:02 07:43 WBC RBC Hgb Hct MCV MCH MCHC RDW Plt Count MPV Neut % (Auto) Lymph % (Auto) [place] % (Auto) Eos % (Auto) Baso % (Auto) Absolute Neuts (auto) Absolute Lymphs (auto) Absolute Monos (auto) Absolute Eos (auto) Absolute Basos (auto) Absolute Nucleated RBC Nucleated RBC % Sodium Potassium Chloride Carbon Dioxide Anion Gap BUN Creatinine Est GFR ( Amer) Est GFR (Non-Af Amer) BUN/Creatinine Ratio Glucose POC Glucose (mg/dL) 243 H 218 H 148 H Calcium Magnesium Total Bilirubin AST ALT Alkaline Phosphatase Total Protein Albumin Globulin Albumin/Globulin Ratio 09/13/16 09/13/16 09/13/16 09:00 09:00 14:57 WBC 10.9 H RBC 4.84 Hgb 12.4 L Hct 39 L MCV 81 MCH 26 L MCHC 32 RDW 17 H Plt Count 436 MPV 8 Neut % (Auto) 83.4 H Lymph % (Auto) 6.8 L [place] % (Auto) 9.5 H Eos % (Auto) 0.1 Baso % (Auto) 0.2 Absolute Neuts (auto) 9.1 H Absolute Lymphs (auto) 0.7 L Absolute Monos (auto) 1.0 H Absolute Eos (auto) 0 Absolute Basos (auto) 0 Absolute Nucleated RBC 0 Nucleated RBC % 0 Sodium 124 L D Potassium 5.3 H Chloride 83 L Carbon Dioxide 33 H Anion Gap 8 BUN 22 Creatinine 1.22 H Est GFR ( Amer) 78.2 Est GFR (Non-Af Amer) 60.8 BUN/Creatinine Ratio 18.0 Glucose 276 H POC Glucose (mg/dL) 272 H Calcium 9.5 Magnesium Total Bilirubin 0.30 AST 15 ALT 27 Alkaline Phosphatase 100 Total Protein 7.3 Albumin 3.6 Globulin 3.7 Albumin/Globulin Ratio 1.0 09/13/16 09/14/16 09/14/16 23:54 05:27 05:27 WBC 9.8 RBC 4.37 Hgb 11.2 L Hct 36 L MCV 82 MCH 26 L MCHC 31 RDW 17 H Plt Count 353 MPV 8 Neut % (Auto) 81.1 Lymph % (Auto) 8.5 L [place] % (Auto) 10.1 H Eos % (Auto) 0 Baso % (Auto) 0.3 Absolute Neuts (auto) 8.0 H Absolute Lymphs (auto) 0.8 L Absolute Monos (auto) 1.0 H Absolute Eos (auto) 0 Absolute Basos (auto) 0 Absolute Nucleated RBC 0.01 Nucleated RBC % 0.1 Sodium 132 L D Potassium 5.1 H Chloride 98 L Carbon Dioxide 30 Anion Gap 4 BUN 22 Creatinine 1.18 H Est GFR ( Amer) 81.3 Est GFR (Non-Af Amer) 63.2 BUN/Creatinine Ratio 18.6 Glucose 69 L POC Glucose (mg/dL) 184 H Calcium 8.3 L Magnesium 2.5 Total Bilirubin 0.20 AST 11 L ALT 22 Alkaline Phosphatase 85 Total Protein 6.2 L Albumin 3.2 Globulin 3.0 Albumin/Globulin Ratio 1.1 09/14/16 07:46 WBC RBC Hgb Hct MCV MCH MCHC RDW Plt Count MPV Neut % (Auto) Lymph % (Auto) [place] % (Auto) Eos % (Auto) Baso % (Auto) Absolute Neuts (auto) Absolute Lymphs (auto) Absolute Monos (auto) Absolute Eos (auto) Absolute Basos (auto) Absolute Nucleated RBC Nucleated RBC % Sodium Potassium Chloride Carbon Dioxide Anion Gap BUN Creatinine Est GFR ( Amer) Est GFR (Non-Af Amer) BUN/Creatinine Ratio Glucose POC Glucose (mg/dL) 79 Calcium Magnesium Total Bilirubin AST ALT Alkaline Phosphatase Total Protein Albumin Globulin Albumin/Globulin Ratio Assessment: 1. multifocal pneumonia, could be bacterial, viral, fungal (inclding PCP); improving 2. lung cancer on chemotherapy 3. acute hypoxemic respiratory failure, present on admission, resolved 5. nausea and hyperkalemia could be bactrim related Plan: decrease bactrim to 2 DS tab po Q8hrs , day 08/27; prednisone taper per oncology
[2016-09-14] MEDS: Mometasone/Formoter 200/5 MDI INH SCH ×2 (16:20→19:46)
[2016-09-14] MEDS: metFORMIN* 1,000 MG TAB PO SCH (17:32)
[2016-09-14] MEDS: ALPRAZolam TAB* 0.5 MG PO PRN (18:20)
[2016-09-14] MEDS: Enoxaparin(*) 40 MG/0.4 ML SYR SUBCUT SCH (20:42)
[2016-09-15] MEDS: NS 0.9% 1000 ML* 1,000 ML IV SCH (04:04)
[2016-09-15] MEDS: Sulfamethox/Trimethoprim DS 800/160* TAB PO SCH (05:26)
[2016-09-15] MEDS: Mometasone/Formoter 200/5 MDI INH SCH (08:26)
[2016-09-15 10:14] VITALS: BP 126/79
--- NOTE | 2016-09-15 10:19 | PN ---
Progress Note - Progress Note SOAP: Subjective: []Doing well. No SOB. Had low BP yesterday resting in bed, asymptomatic. No palpitations. No fevers. Albuterol (Ventolin 2.5 Mg/3 Ml Neb.Irina*) 2.5 mg INH Q6H PRN PRN Reason: SHORTNESS OF BREATH Alprazolam (Xanax Tab*) 0.5 mg PO TID PRN PRN Reason: ANXIETY Last Admin: 09/14/16 18:20 Dose: 0.5 mg Atorvastatin Calcium (Lipitor*) 20 mg PO DAILY [facility] Last Admin: 09/14/16 10:48 Dose: 20 mg Enoxaparin Sodium (Lovenox(*)) 40 mg SUBCUT Q24H [facility] Last Admin: 09/14/16 20:42 Dose: 40 mg Glimepiride (Glimepiride (Nf)) 2 mg PO DAILY WITH MEAL [facility] Last Admin: 09/14/16 08:17 Dose: 2 mg Heparin Sodium (Porcine) (Heparin Flush Port (Ivad)) 5 ml FLUSH DAILY [facility] PRN Reason: Protocol Last Admin: 09/14/16 11:49 Dose: Not Given Sodium Chloride (Ns 0.9% 1000 Ml*) 1,000 mls @ 125 mls/hr IV PER RATE [facility] Last Admin: 09/15/16 04:04 Dose: 125 mls/hr Lactulose (Lactulose*) 30 ml PO TID [facility] Last Admin: 09/14/16 23:09 Dose: Not Given Magnesium Hydroxide (Milk Of Magnesia Liq*) 30 ml PO Q6H PRN PRN Reason: CONSTIPATION Last Admin: 09/13/16 20:59 Dose: 30 ml Metformin HCl (Glucophage*) 1,000 mg PO BID WITH MEALS [facility] Last Admin: 09/14/16 17:32 Dose: 1,000 mg Metoprolol Succinate (Toprol Xl Tab*) 50 mg PO BID [facility] Last Admin: 09/14/16 23:09 Dose: 50 mg Metoprolol Succinate (Toprol Xl Tab*) 25 mg PO BID [facility] Last Admin: 09/14/16 23:08 Dose: 25 mg Mometasone Furoate/Formoterol Fumar (Dulera 200/5 Mdi*) 2 puff INH BID [facility] Last Admin: 09/15/16 08:26 Dose: 2 puff Morphine Sulfate (Ms Contin(*)) 15 mg PO BID [facility] Last Admin: 09/14/16 23:08 Dose: 15 mg Ondansetron HCl (Zofran Inj*) 4 mg IV Q6H PRN PRN Reason: NAUSEA Last Admin: 09/13/16 16:56 Dose: 4 mg Oxycodone HCl (Roxycodone Tab*) 10 mg PO BID PRN PRN Reason: PAIN Polyethylene Glycol/Electrolytes (Miralax*) 17 gm PO 0800,2100 [facility] Last Admin: 09/14/16 23:10 Dose: Not Given Prednisone (Deltasone Tab*) 50 mg PO DAILY WITH [facility]AL [facility] Sitagliptin Phosphate (Januvia (Nf)) 50 mg PO BID WITH MEALS [facility] Last Admin: 09/14/16 17:32 Dose: 50 mg Sodium Biphosphate/Sodium Phosphate (Fleet Enema*) 1 bottle OR ONCE PRN PRN Reason: CONSTIPATION Trazodone HCl (Desyrel Tab*) 25 mg PO BEDTIME PRN PRN Reason: SLEEP Trimethoprim/Sulfamethoxazole (Bactrim Ds 800/160 Tab*) 2 tab PO Q8H [facility] Last Admin: 09/15/16 05:26 Dose: 2 tab Venlafaxine HCl (Effexor Xr Cap*) 75 mg PO DAILY WITH [facility] Last Admin: 09/14/16 08:17 Dose: 75 mg Objective: [] Vital Signs Temp Pulse Resp BP Pulse Ox 98.7 F 83 16 104/62 97 09/15/16 04:04 09/15/16 04:04 09/15/16 04:04 09/15/16 04:04 09/15/16 04:04 HEENT - pale, no thrush, moist CTA HR 80s and irregular. Abd - obese, NT/ND Ext with good pulses and warm Assessment: [] 61 year old stave IV lung cancer status post progression on nivolumab (last treated 07/03/16) and now on docetaxel and ramcirumab. Presents with diffuse alveolar disease. Differential is CAP, PCP, viral pneumonitis, delayed reaction to nivolumab. Improving on steroids and antibiotics. Tachycardia is now controlled. He had episode of low BP yesterday in bed, no symptoms. Feeling well this am. Plan: []1. Will discharge on Bactrim to continue until follow up. Will decrease Prednisone to 40 mg per day. 2. Cardiac. Case discussed with Dr. Chery, will d/c on home Metoprolol. No anticoagulation. 3. DM. Continue oral medications. 4. GI. Encouraged po, he is eating well over past 24 hrs. 5. Check BMP prior to D/C
[2016-09-15] MEDS: Venlafaxine EXT RELEASE CAP* 75 MG PO SCH (10:21)
[2016-09-15] MEDS: CMCS: Glimepiride (NF) 2 MG TAB PO SCH (10:21)
[2016-09-15] MEDS: Atorvastatin* 20 MG TAB PO SCH (10:21)
[2016-09-15] MEDS: metFORMIN* 1,000 MG TAB PO SCH (10:21)
[2016-09-15] MEDS: Metoprolol Succinate XL TAB* 25 MG PO SCH (10:21)
[2016-09-15] MEDS: Metoprolol Succinate XL TAB* 50 MG PO SCH (10:22)
[2016-09-15] MEDS: Morphine TAB Extended Release (*) 15 MG TAB.ER PO SCH (10:22)
[2016-09-15] MEDS: ALPRAZolam TAB* 0.5 MG PO PRN (10:22)
[2016-09-15] MEDS: Polyethylene Glycol 3350* 17 GM PACKET PO SCH (10:22)
[2016-09-15] MEDS: CMCS: Sitagliptin (NF) 50 MG TAB PO SCH (10:23)
--- NOTE | 2016-09-15 15:33 | DS ---
DISCHARGE SUMMARY: DATE OF ADMISSION: 09/06/16 DATE OF DISCHARGE: 09/15/16 Discard discharge summary from 09/08/16. PRINCIPAL DIAGNOSES: 1. Atypical pneumonia. 2. Chronic obstructive pulmonary disease exacerbation. 3. Type 2 diabetes. 4. Lung cancer, primary with metastasis, on chemotherapy. 5. Tachycardia and hypotension. DISCHARGE MEDICATIONS: 1. Albuterol nebulizers as previously home. 2. Alprazolam 0.5 t.i.d. p.r.n. anxiety. 3. Atorvastatin 20 mg daily. 4. Glimepiride 2 mg p.o. with meals. 5. Metformin 1000 mg p.o. b.i.d. 6. Metoprolol XL 50 mg p.o. b.i.d. 7. Morphine sulfate 15 mg p.o. b.i.d. 8. Breo Ellipta. 9. Oxycodone 10 mg p.o. q.6 p.r.n. pain. 10. Prednisone 40 mg p.o. daily. 11. Januvia 50 mg b.i.d. with meals. 12. Bactrim 2 tablets every 6 hours for an additional 3 days. 11. Effexor 75 mg daily with meals. HOSPITAL COURSE: He was admitted on 09/06/16 with increasing hypoxia and modest respiratory failure . CT scan consistent with a diffuse infiltrate, atypical pneumonia or pneumonitis from nivolumab. He was seen by Dr. Nguyen as well as Dr. Daigle. He was started on cefepime, azithromycin, and Ba ctrim. Ultimately Bactrim which he is taking double strength 3 times a day. He was put on p rednisone 60 mg a day. The combination of antibiotics and prednisone significantly improved his paulo athing and he is now back to baseline. He had significant side effects to prednisone, it has been t apered to 40 mg a day on discharge. He was set for discharge 1 week ago. He then developed tachyca rdia with a heart rate of 135, asymptomatic. He had a cardiology consultation. He was placed on mu ltiple medications including Cardizem initially drip n.p.o. as well as metoprolol. His heat rate no rmalized. He has subsequently been tapered down to his home dose of metoprolol. He developed hypot ension over the past 2 days. I suspect this was decreased p.o. intake and dehydration. He responde d to IV fluids. Now eating well. They are anxious to go home and overall feeling well today. Discharge will be today with followup next week with Dr. Gonzáles in clinic. His therapy will be on hold until he is seen by Dr. Gonzáles. He is instructed to call with any concerns at home includin g changes in blood sugars, blood pressure, heart rate, or feeling poorly. [id number]/[facility] #: [id number]
== END 2016-09-15 12:00 | disposition home or self-care (01) | DRG 140 ==
LOC: MED 18:03 → MEDTELE 09-14 08:33
PROVIDERS: ADMIT Internal Medicine Hematology & Oncology; ATTEND Internal Medicine Hematology & Oncology
DX: J44.0 Chronic obstructive pulmonary disease with (acute) lower respiratory infection (principal); J96.22 Acute and chronic respiratory failure with hypercapnia; J96.21 Acute and chronic respiratory failure with hypoxia; I26.99 Other pulmonary embolism without acute cor pulmonale; J18.9 Pneumonia, unspecified organism; C79.9 Secondary malignant neoplasm of unspecified site; C34.91 Malignant neoplasm of unspecified part of right bronchus or lung; I47.1 Supraventricular tachycardia; I95.9 Hypotension, unspecified; E87.1 Hypo-osmolality and hyponatremia; I48.92 Unspecified atrial flutter; I10 Essential (primary) hypertension; J44.1 Chronic obstructive pulmonary disease with (acute) exacerbation; E78.5 Hyperlipidemia, unspecified; E11.9 Type 2 diabetes mellitus without complications; Z88.0 Allergy status to penicillin; Z87.891 Personal history of nicotine dependence; Z80.1 Family history of malignant neoplasm of trachea, bronchus and lung; G47.33 Obstructive sleep apnea (adult) (pediatric); R11.2 Nausea with vomiting, unspecified; K59.00 Constipation, unspecified; E87.6 Hypokalemia; R94.31 Abnormal electrocardiogram [ECG] [EKG]; Z79.52 Long term (current) use of systemic steroids; Z79.84 Long term (current) use of oral hypoglycemic drugs; E86.0 Dehydration
CPT/HCPCS: 1036F; 36415; 36591; 70553; 71275; 74020; 80048; 80053; 83615; 83735; 83880; 84443; 85025; 85027; 86140; 87899; 93005; 93306; 94640; 94760; 99214; 99223; 99232; 99233; A9270-GY; A9579; G0463; G8427; J0696; J1642; J1650; J2405; J7512; Q9967

== ENCOUNTER 2017-01-13 07:02 | Inpatient (IN) | payer BC ==
[2017-01-13] MEDS ORDERED: Furosemide TAB* 20 MG PO PRN (13:39)
[2017-01-13] MEDS: Enoxaparin(*) 40 MG/0.4 ML SYR SUBCUT SCH (15:08)
[2017-01-13] MEDS: Sodium Chloride Conc 23.4%* 77 MEQ in D10W 1000 ML BAG* 1,000 ML IV SCH (15:08)
[2017-01-13] MEDS: Azithromycin IV(*) 250 MG in NS 0.9% 250 ML* 250 ML IVPB SCH (15:08)
[2017-01-13] MEDS: Saline FLUSH-CENTRAL* 10 ML SYRINGE CENT\\PICC SCH (15:08)
[2017-01-13 15:26] LABS: Hematocrit 26 % (42-52); Hemoglobin 8.2 g/dl (14.0-18.0)
[2017-01-13 15:30] LABS: Comments Flag Yes
[2017-01-13] MEDS: Cefepime(*) 2 GM in NS 0.9% 50 ML* 50 ML IVPB SCH ×2 (17:13→22:58)
[2017-01-13] MEDS: Morphine TAB Extended Release (*) 15 MG TAB.ER PO SCH (20:30)
[2017-01-13] MEDS: traZODone TAB* 50 MG TAB PO PRN (22:57)
[2017-01-13] MEDS: Metoprolol Succinate XL TAB* 50 MG PO SCH (22:58)
[2017-01-14] MEDS: Sodium Chloride Conc 23.4%* 77 MEQ in D10W 1000 ML BAG* 1,000 ML IV SCH (01:27)
[2017-01-14] MEDS: Saline FLUSH-CENTRAL* 10 ML SYRINGE CENT\\PICC SCH ×2 (01:28→13:22)
[2017-01-14] MEDS: oxyCODONE TAB* 5 MG TAB PO PRN ×2 (03:35→20:45)
[2017-01-14 05:10] LABS: Hematocrit 25 % (42-52); Hemoglobin 7.8 g/dl (14.0-18.0); Mean Corpuscular HGB Conc 32 g/dl (31-36); Mean Corpuscular Hemoglobin 25 pg (27-31); Mean Corpuscular Volume 79 fL (80-94); Mean Platelet Volume 9 um3 (7.4-10.4); Red Blood Count 3.14 10^6/ul (4.0-5.4); Red Cell Distribution Width 20 % (10.5-15); White Blood Count 1.8 10^3/ul (3.5-10.8)
[2017-01-14 05:12] LABS: Add Diff/Slide Review? Slide Review Added; BUN/Creatinine Ratio 11.1 (8-20); Calcium 7.8 mg/dL (8.6-10.3); Comments Flag Yes; EGFR African American 200.3 (>60); EGFR Non-African American 155.7 (>60); Potassium 3.6 mmol/L (3.5-5.0)
[2017-01-14] MEDS: Cefepime(*) 2 GM in NS 0.9% 50 ML* 50 ML IVPB SCH ×3 (06:32→21:55)
[2017-01-14] MEDS: Mometasone/Formoter 200/5 MDI INH SCH ×2 (09:03→20:09)
[2017-01-14] MEDS: Metoprolol Succinate XL TAB* 50 MG PO SCH ×2 (09:21→20:46)
[2017-01-14] MEDS: Atorvastatin* 20 MG TAB PO SCH (09:21)
[2017-01-14] MEDS: metFORMIN* 500 MG TAB PO SCH ×2 (09:22→20:46)
[2017-01-14] MEDS: Morphine TAB Extended Release (*) 15 MG TAB.ER PO SCH ×2 (09:22→20:45)
[2017-01-14] MEDS: CMC: SitaGLIPtin (NF) 25 MG TAB PO SCH (09:22)
[2017-01-14] MEDS: Venlafaxine EXT RELEASE CAP* 75 MG PO SCH (09:22)
[2017-01-14] MEDS: ALPRAZolam TAB* 0.5 MG PO PRN ×2 (09:33→20:45)
[2017-01-14] MEDS: Azithromycin IV(*) 250 MG in NS 0.9% 250 ML* 250 ML IVPB SCH (13:37)
[2017-01-14] MEDS: Enoxaparin(*) 40 MG/0.4 ML SYR SUBCUT SCH (13:37)
[2017-01-14] MEDS: NS 0.9% 1000 ML* 1,000 ML IV SCH (13:42)
[2017-01-14] MEDS: Acetaminophen TAB* 325 MG PO PRN (20:09)
[2017-01-14] MEDS: traZODone TAB* 50 MG TAB PO PRN (21:55)
[2017-01-15] MEDS: Saline FLUSH-CENTRAL* 10 ML SYRINGE CENT\\PICC SCH ×2 (01:45→13:37)
--- NOTE | 2017-01-15 04:09 | HP ---
ADMISSION HISTORY AND PHYSICAL: DATE OF ADMISSION: 01/13/17 REASON FOR ADMISSION: Pneumonia and hypoglycemia. HISTORY OF PRESENT ILLNESS: Mr. Ivan is a 61-year-old male who was originally diagnosed with non-small cell lung cancer in mid 2015. For details, please see below. He currently has been on third-line chemotherapy with ramucirumab and Taxotere. He received his most recent dose on 01/08/17 after having started this medication in July of 2016. Approximately on 12/27/16, he was diagnosed clinically as having pneumonia based on symptoms, physical exam and a productive cough by his primary care physician, Dr. Clay. At that time, he had a fever to 101 along with fevers and sweats. He was given a 5-day course of Levaquin 750 mg a day. He felt somewhat better thereafter. When he was seen back in the office this last Sunday for his chemotherapy, he was resumed on Levaquin at 750 mg per day which he actually took starting on 01/09/17, was scheduled for a 14-day course. He also was found to have significantly more anemia with a hemoglobin of approximately 7.9 and received his first blood transfusion of 1 unit. Over the past several days, the patient has been more short of breath and also yesterday became much more diaphoretic. His blood sugar is 124 last evening on arrival in the emergency room at a hospital in [place], [place]. His blood sugar was 28, he was extremely diaphoretic and pale. He was bringing up more sputum, but denied a significant fever. He denied any chest pain. His found him to even worse at midnight than he had been earlier in the day. She did not take his temperature and did not check his blood sugar. Subsequent to arrival in the emergency room there, he did receive a D50 on a couple of occasions and also was started on antibiotics there. Following several hours in the emergency room there, he was transferred to our hospital to be cared for by his providers. While at [facility], a CT scan of the chest with contrast was performed. This revealed a mass-like consolidation at the right hemithorax with volume loss and soft tissue encasement of the right mainstem bronchus. In addition, there is a small layering pleural effusion. There was mild thickening of the pericardium after which neoplastic involvement could not be excluded. Lucencies were noted throughout this consolidation with a question of cavitary component. A compression fracture was noted at T9. There was an ill-defined mass in the superior pole of the right kidney measuring 4.1 cm which is known to have been present previously. There was no significant adenopathy noted. PAST MEDICAL HISTORY: Lungs cancer originally diagnosed in October of 2015 at the time when he had a large right perihilar mass with truncation of the bronchus intermedius. Pathology revealed squamous cell carcinoma. He was evaluated for resection in [place], but it was felt that the mass was invading the interatrial wall with occlusion of the superior pulmonary vein in the right middle pulmonary artery and therefore was deemed to be unresectable by Dr. Walker of Thoracic [facility] at [facility]. He was treated initially with radiation therapy, carboplatin and Taxol and then 1 dose of every 3 week carbo-Taxol thereafter. He subsequently was placed on nivolumab and had progression of disease on this medication and in July 2016 was started on a dose of Taxol and ramucirumab. He most recently had a CT scan in December of 2016 with a marked improvement in the axillary adenopathy, which had been quite massive before in the left axilla with a question of slight progression in the chest and in the kidney, but no major changes. He had had a favorable response clinically and the decision was made to continue the medication. History of COPD, history of diabetes mellitus, history of hypertension. Status post herniorrhaphy. Shoulder repair in 1975. MEDICATIONS: 1. Alprazolam 0.5 mg q.h.s. and b.i.d. p.r.n. 2. Glimepiride 2 mg in the morning. 3. Metoprolol XL 50 mg daily. 4. Morphine 50 mg extended release b.i.d. 5. Simvastatin 40 mg at bedtime. 6. Janumet/metformin daily. 7. Venlafaxine extended release 75 mg daily. ALLERGIES: Not recorded. FAMILY HISTORY: Mother of lung cancer at age 74. SOCIAL HISTORY: The patient is a former smoker, lives with his . He smoked 2 packs per day for 40 years. Quitting smoking 1 year ago. History of drinking, but quit approximately 2 to 3 months ago. Prior cocaine use. Quitting this 7 years ago. REVIEW OF SYSTEMS: As discussed above. PHYSICAL EXAMINATION GENERAL: A 61-year-old male in no acute distress by the time he arrived to the floor in our hospital. VITAL SIGNS: Blood pressure 125/93, pulse 91, temperature afebrile, respiratory rate of 18, O2 saturation over 90% on 2 L. HEENT: PERRL, EOMI. No erythema or exudates. No palpable cervical, supraclavicular, or axillary adenopathy is noted. LUNGS: Decreased breath sounds and tubular breath sounds on the right, fairly clear on the left. HEART: Regular rate and rhythm without murmurs, rubs, or gallops. ABDOMEN: Soft and nontender without masses or organomegaly. EXTREMITIES: No clubbing, cyanosis, or edema. BACK: No CVA or spinal tenderness. LABORATORY STUDIES: Sodium 129, potassium 3.2, chloride 89, bicarb 36, BUN 12 , creatinine 0.7, LFTs within normal limits. CBC with a white count of 5600, H and H of 21.8/6.8, platelet count of 119,000 with an ANC of over 5000. Lactic acid was 1.3. Troponin 0.069. Blood cultures are pending. IMPRESSION: A 61-year-old male with locally advanced and metastatic non-small cell lung cancer, who now presents with an episode of severe hypoglycemia, although he reports at times he does not watch his diet, still taking his medications, and has blood sugars as low as 30s and 40s. He presents with fever , drenching sweats, respiratory distress, and likely pneumonia with a CT scan showing likely local progression with compression of the mainstem bronchus. He has already received a dose of vancomycin and clindamycin at [place] prior to transfer along with 1 unit of packed red blood cells, potassium and also several doses of D50 and is currently on IV fluid with initially D10, but changed to D5 prior to transfer. At this time, decision was made to treat him with a D10 to hold his diabetic medications and to start him on antibiotics with cefepime 2 g q.8 hours. He requests a full code status. He does not have a healthcare proxy in place, but does request that his be his surrogate and healthcare proxy and form should be filled out in the future for this. DVT prophylaxis with Levaquin is given. [id number]/[facility] #: [id number] [facility]
[2017-01-15] MEDS: Cefepime(*) 2 GM in NS 0.9% 50 ML* 50 ML IVPB SCH ×2 (05:09→15:11)
[2017-01-15 05:46] LABS: Hematocrit 26 % (42-52); Hemoglobin 8.7 g/dl (14.0-18.0); Mean Corpuscular HGB Conc 33 g/dl (31-36); Mean Corpuscular Hemoglobin 26 pg (27-31); Mean Corpuscular Volume 80 fL (80-94); Mean Platelet Volume 8 um3 (7.4-10.4); Red Blood Count 3.31 10^6/ul (4.0-5.4); Red Cell Distribution Width 19 % (10.5-15); White Blood Count 1.3 10^3/ul (3.5-10.8)
[2017-01-15 05:47] LABS: Add Diff/Slide Review? Manual Diff Added; Comments Flag Yes
[2017-01-15 05:57] LABS: BUN/Creatinine Ratio 10.2 (8-20); Calcium 7.8 mg/dL (8.6-10.3); EGFR Non-African American 174.2 (>60); Potassium 3.5 mmol/L (3.5-5.0)
[2017-01-15 06:22] LABS: Eosinophils % 4 % (0-6); Neutrophil % 54 % (38-83); Reactive Lymph % 4 % (0-6)
[2017-01-15 06:23] LABS: Hypochromasia 2+; Stomatocytes 1+
[2017-01-15 06:24] LABS: Add Path Review? YES
[2017-01-15] MEDS: Mometasone/Formoter 200/5 MDI INH SCH ×2 (08:10→19:55)
[2017-01-15] MEDS: metFORMIN* 500 MG TAB PO SCH ×3 (08:49→21:14)
[2017-01-15] MEDS: Metoprolol Succinate XL TAB* 50 MG PO SCH ×2 (08:49→21:10)
[2017-01-15] MEDS: CMC: SitaGLIPtin (NF) 25 MG TAB PO SCH (08:49)
[2017-01-15] MEDS: Atorvastatin* 20 MG TAB PO SCH (08:49)
[2017-01-15] MEDS: Venlafaxine EXT RELEASE CAP* 75 MG PO SCH (08:49)
[2017-01-15] MEDS: Morphine TAB Extended Release (*) 15 MG TAB.ER PO SCH ×2 (08:49→21:14)
--- NOTE | 2017-01-15 09:02 | PN ---
Progress Note - Progress Note Date of Service: 01/15/17 SOAP: Subjective: []Feeling a little better. Really just wants to go home. Having reflux/ indigestion pain after eating. Still exhausted. Worried about needing blood again as he wonders if this caused his chills initially. Medications: Acetaminophen (Tylenol Tab*) 650 mg PO Q6H PRN PRN Reason: FEVER Last Admin: 01/14/17 20:09 Dose: 650 mg Alprazolam (Xanax Tab*) 0.5 mg PO BID PRN PRN Reason: ANXIETY Last Admin: 01/14/17 20:45 Dose: 0.5 mg Atorvastatin Calcium (Lipitor*) 20 mg PO DAILY [facility] Last Admin: 01/15/17 08:49 Dose: 20 mg Enoxaparin Sodium (Lovenox(*)) 40 mg SUBCUT Q24H [facility] Last Admin: 01/14/17 13:37 Dose: 40 mg Furosemide (Lasix Tab*) 20 mg PO DAILY [facility] Heparin Sodium (Porcine) (Heparin Flush Port (Ivad)) 0 ml FLUSH DAILY [facility] Last Admin: 01/15/17 08:50 Dose: Not Given Cefepime HCl 2 gm/ Sodium (Chloride) 50 mls @ 100 mls/hr IVPB Q8H [facility] Last Admin: 01/15/17 05:09 Dose: 100 mls/hr Azithromycin 250 mg/ Sodium (Chloride) 250 mls @ 250 mls/hr IVPB Q24H [facility] Last Admin: 01/14/17 13:37 Dose: 250 mls/hr Sodium Chloride (Ns 0.9% 1000 Ml*) 1,000 mls @ 0 mls/hr IV .KVO [facility] PRN Reason: KVO Last Admin: 01/14/17 13:42 Dose: 15 mls/hr Metformin HCl (Glucophage*) 500 mg PO BID [facility] Last Admin: 01/15/17 08:59 Dose: Not Given Metoprolol Succinate (Toprol Xl Tab*) 50 mg PO BID [facility] Last Admin: 01/15/17 08:49 Dose: 50 mg Mometasone Furoate/Formoterol Fumar (Dulera 200/5 Mdi*) 1 puff INH BID [facility] Last Admin: 01/15/17 08:10 Dose: 1 puff Morphine Sulfate (Ms Contin(*)) 15 mg PO BID [facility] Last Admin: 01/15/17 08:49 Dose: 15 mg Oxycodone HCl (Roxycodone Tab*) 15 mg PO Q6H PRN PRN Reason: PAIN Last Admin: 01/14/17 20:45 Dose: 15 mg Sitagliptin Phosphate (Januvia (Nf)) 50 mg PO DAILY [facility] Last Admin: 01/15/17 08:49 Dose: 50 mg Sodium Chloride (Central Saline Flush*) 10 ml CENT\PICC Q12H [facility] Last Admin: 01/15/17 01:45 Dose: Not Given Trazodone HCl (Desyrel Tab*) 25 mg PO BEDTIME PRN PRN Reason: SLEEP Last Admin: 01/14/17 21:55 Dose: 25 mg Venlafaxine HCl (Effexor Xr Cap*) 75 mg PO DAILY [facility] Last Admin: 01/15/17 08:49 Dose: 75 mg Objective: [] Vital Signs Temp Pulse Resp BP Pulse Ox 98.5 F 67 20 112/56 95 01/15/17 03:34 01/15/17 08:11 01/15/17 08:49 01/15/17 03:34 01/15/17 08:11 A&Ox3, EOMI, neuro grossy non-focal HRR, distant heart sounds LS with increase bronchial sound throughout +BS, soft and an non-tender +2 edema bilat. ankles Laboratory Results - last 24 hr 01/15/17 01/15/17 05:10 05:10 WBC 1.3 L RBC 3.31 L Hgb 8.7 L Hct 26 L MCV 80 MCH 26 L MCHC 33 RDW 19 H Plt Count 100 L MPV 8 Neut % (Auto) 48.3 Lymph % (Auto) 21.9 L [place] % (Auto) 25.3 H Eos % (Auto) 3.6 Baso % (Auto) 0.9 Absolute Neuts (auto) 0.6 L Absolute Lymphs (auto) 0.3 L Absolute Monos (auto) 0.3 Absolute Eos (auto) 0 Absolute Basos (auto) 0 Absolute Nucleated RBC 0 Neutrophils % 54 Lymphocytes % 16 L Reactive Lymphs % 4 Monocytes % 22 H Eosinophils % 4 Nucleated RBC % 0.4 Normal RBC Morphology Not Reportable Hypochromasia 2+ Stomatocytes 1+ Sodium 134 Potassium 3.5 Chloride 94 L Carbon Dioxide 38 H Anion Gap 2 BUN 5 L Creatinine 0.49 L Est GFR ( Amer) 224.0 Est GFR (Non-Af Amer) 174.2 BUN/Creatinine Ratio 10.2 Glucose 130 H POC Glucose (mg/dL) Calcium 7.8 L Blood Type Antibody Screen Crossmatch Assessment: []61 yo male with metastatic squamous cell carcinoma admitted from [place] with pneumonia and hypoglycemia. Blood cultures from [place] with one bottle positive for S.Pneumonia thus far, sensitivities pending - sepsis present on admission. Plan: []1. S.Pneumo Sepsis: consult ID Dr. Daigle re: coverage and length of tx., ? post obstructive component? -- blood cultures will be faxed once resulted @ [place] -- sputum pending 2. Indigestion: add PPI and tums PRN 3. Lung Cancer: s/p C8 Docetaxel/Ramucirumab on 01/08, CT scan difficult to differential tumor vs. infection, likely will want to repeat scan once improves with IV abx., therapy on hold until acute infection resolves 4. Hypoglycemia: resolved, follow BG and has resumed oral anti-diabetic meds 5. Anemia: likely r/t chemotherapy as indices essentially normal (mild dec. in [facility]) though to be cautious will check iron, folic acid, and B12 levels. Stool occult blood negative. 6. Fluid retention: change lasix to daily for now Full Code
[2017-01-15] MEDS ORDERED: Calcium Carbonate CHEW TAB* 500 MG (TUMS) PO PRN (09:40)
[2017-01-15] MEDS: Omeprazole CAP* 20 MG PO SCH (10:41)
--- NOTE | 2017-01-15 12:06 | CONS ---
CONSULTATION REPORT: DATE OF CONSULT: 01/15/17 REQUESTING PROVIDER: Linda Michelle NP CONSULTING SERVICE: Infectious Disease. REASON FOR CONSULTATION: Pneumonia and bacteremia. IMPRESSION: 1. Recently has been treated with Levaquin as an outpatient for pneumonia, now with worsening fever , hypoglycemia, encephalopathy. CT scan of chest, abdomen, and pelvis in [facility] apparentl y shows mass-like consolidation in the right hemithorax, volume loss, and tissue encasement of the r ight mainstem bronchus, layering pleural effusion. Blood cultures were drawn there. He was transfe rred here. His cultures are positive for pneumococcus. Most likely this is pneumonococcal pneumoni a, could be postobstructive, could be parapneumonic effusion as well. He does have a port, so seedi ng in the port is a possibility, though less likely with pneumonococcus. He has no other prosthetic material present. He has no musculoskeletal including spine symptoms. 2. Squamous cell lung cancer, on chemotherapy. 3. Diabetes. 4. Encephalopathy was present on admission, improving. RECOMMENDATIONS: 1. Agree with cefepime and azithromycin while awaiting the blood cultures and sensitivity. 2. Ultrasound of the chest to evaluate for thoracentesis to see if there are any drainable fluid. 3. Repeat blood cultures. HISTORY OF PRESENT ILLNESS: This is a 61-year-old man undergoing chemotherapy for squamous cell can cer of the lung, admitted with malaise, fever, hypoglycemia. He had been treated as an outpatient w ith Levaquin for cough, sputum production, fever, presumed pneumonia, been on it for about 10 days a nd then had confusion, was found to have low blood sugar in the setting of not eating much for a few days and continuing with his oral hypoglycemics. He is also having worsening shortness of breath. He went to the hospital in [place], had CT with findings as above. He was transferred here. Blood cultures subsequently positive for pneumococcus. He had a sputum sample sent here this morning jose t showed gram-positive cocci, yeast, and gram-positive bacilli, other cultures pending. He is afebr ile, he is on 4 L. He is feeling more awake and with it. No fever or chills. White blood cell cou nt is 1.3 here. PAST MEDICAL HISTORY: 1. Squamous cell cancer of the right lung, was unresectable, has been treated with chemotherapy, Ta xol, and ramucirumab since July with improvement in adenopathy. 2. He has had a pneumonia last summer. 3. Diabetes. 4. Anxiety. 5. Hyperlipidemia. 6. COPD. MEDICATIONS: 1. Alprazolam. 2. Lipitor. 3. Enoxaparin. 4. Furosemide. 5. Cefepime 2 g IV every 8 hours. 6. Metoprolol. 7. Effexor. 8. Azithromycin 250 mg daily. 9. Oxycodone. 10. Metformin. ALLERGIES: PENICILLIN caused unknown reaction as a baby. FAMILY HISTORY: No tuberculosis. Mother with lung cancer, age 74. SOCIAL HISTORY: Lives in [place] with significant other. No travel. Is a past smoker. REVIEW OF SYSTEMS: A 14-point review of systems was negative except as noted above. PHYSICAL EXAM: Vital Signs: Temperature is 36.6, heart rate is 67, respiratory rate 18, blood pres sure 134/66, oxygen saturation 97% on 4 L. In general, he is awake, not in distress. Neurologic: He is oriented x3. Follows all commands. HEENT: There is no conjunctival hemorrhage. Oropharynx w ithout lesions. Neck is supple. Lymph Nodes: There is no inguinal, axillary, or epitrochlear lymp hadenopathy. Heart: Regular rate and rhythm without murmurs, rubs or gallops. Lungs: Decreased br eath sounds at the right base. There is egophony at the right base. There is no wheeze or rale. A bdomen: Soft, nontender, nondistended. There are bowel sounds present. Skin: There is no rash. No splinter hemorrhages. Musculoskeletal: No spine tenderness to palpation or joint synovitis. DIAGNOSTIC STUDIES/LAB DATA: White blood cell count 1.3, hemoglobin 8.7, and platelets 100. Creati nine 0.4. CRP 242. Please see impressions and recommendation as outlined above, which I have discussed with Dr. Cardona. Thank you for asking me to see Mr. Ivan in consultation. [id number]/[facility] #: [id number]
--- NOTE | 2017-01-15 12:25 | RAD ---
INDICATION: Consolidation obscuring the right hemithorax on January 13, 2017 CT of the chest. COMPARISON: CT of the chest done 717 TECHNIQUE: Real time ultrasound images of the bilateral pleural spaces were acquired with richardson scale and Doppler color flow imaging. FINDINGS: Sonographic imaging of the bilateral pleural spaces do not reveal any large drainable fluid collection. There is a small fluid collection in the right pleural space. IMPRESSION: Trace fluid in the right pleural space.
[2017-01-15] MEDS: Azithromycin IV(*) 250 MG in NS 0.9% 250 ML* 250 ML IVPB SCH (13:31)
[2017-01-15] MEDS: Enoxaparin(*) 40 MG/0.4 ML SYR SUBCUT SCH (13:32)
[2017-01-15] MEDS: Acetaminophen TAB* 325 MG PO PRN (21:14)
[2017-01-15] MEDS: ALPRAZolam TAB* 0.5 MG PO PRN (21:14)
[2017-01-15] MEDS: oxyCODONE TAB* 5 MG TAB PO PRN (21:18)
[2017-01-15] MEDS: traZODone TAB* 50 MG TAB PO PRN (21:24)
[2017-01-16] MEDS: Cefepime(*) 2 GM in NS 0.9% 50 ML* 50 ML IVPB SCH ×2 (00:19→05:39)
[2017-01-16] MEDS: Saline FLUSH-CENTRAL* 10 ML SYRINGE CENT\\PICC SCH ×2 (01:58→14:34)
[2017-01-16] MEDS: Omeprazole CAP* 20 MG PO SCH (05:39)
[2017-01-16 06:13] LABS: Iron 22 ug/dL (50-212); Total Iron Binding Capacity 186 mcg/dL (250-450); Transferrin 133 mg/dL (203-362)
[2017-01-16 06:39] LABS: Folate 5.67 ng/mL (>3.99)
[2017-01-16 06:40] LABS: Vitamin B12 313 pg/mL (180-914)
[2017-01-16 06:41] LABS: Ferritin > 1500.0 ng/mL (24-336)
[2017-01-16] MEDS: CMC: SitaGLIPtin (NF) 25 MG TAB PO SCH (08:09)
[2017-01-16] MEDS: Venlafaxine EXT RELEASE CAP* 75 MG PO SCH (08:09)
[2017-01-16] MEDS: Morphine TAB Extended Release (*) 15 MG TAB.ER PO SCH ×2 (08:09→19:34)
[2017-01-16] MEDS: metFORMIN* 500 MG TAB PO SCH ×3 (08:10→19:35)
[2017-01-16] MEDS: Atorvastatin* 20 MG TAB PO SCH (08:10)
[2017-01-16] MEDS: Furosemide TAB* 20 MG PO SCH (08:10)
[2017-01-16] MEDS: Metoprolol Succinate XL TAB* 50 MG PO SCH ×2 (08:10→19:35)
[2017-01-16] MEDS: Mometasone/Formoter 200/5 MDI INH SCH ×2 (09:28→20:38)
--- NOTE | 2017-01-16 12:02 | PN ---
Progress Note - Progress Note Date of Service: 01/16/17 SOAP: Subjective: []Feels a little better today. Still feels exhausted. Worried about what all of this means. Medications: Acetaminophen (Tylenol Tab*) 650 mg PO Q6H PRN PRN Reason: FEVER Last Admin: 01/15/17 21:14 Dose: 650 mg Alprazolam (Xanax Tab*) 0.5 mg PO BID PRN PRN Reason: ANXIETY Last Admin: 01/15/17 21:14 Dose: 0.5 mg Atorvastatin Calcium (Lipitor*) 20 mg PO DAILY [facility] Last Admin: 01/16/17 08:10 Dose: 20 mg Calcium Carbonate (Tums*) 500 mg PO Q4H PRN PRN Reason: INDIGESTION Enoxaparin Sodium (Lovenox(*)) 40 mg SUBCUT Q24H [facility] Last Admin: 01/15/17 13:32 Dose: 40 mg Furosemide (Lasix Tab*) 20 mg PO DAILY [facility] Last Admin: 01/16/17 08:10 Dose: 20 mg Heparin Sodium (Porcine) (Heparin Flush Port (Ivad)) 0 ml FLUSH DAILY [facility] Last Admin: 01/16/17 08:14 Dose: Not Given Cefepime HCl 2 gm/ Sodium (Chloride) 50 mls @ 100 mls/hr IVPB Q8H [facility] Last Admin: 01/16/17 05:39 Dose: 100 mls/hr Azithromycin 250 mg/ Sodium (Chloride) 250 mls @ 250 mls/hr IVPB Q24H [facility] Last Admin: 01/15/17 13:31 Dose: 250 mls/hr Sodium Chloride (Ns 0.9% 1000 Ml*) 1,000 mls @ 0 mls/hr IV .KVO [facility] PRN Reason: KVO Last Admin: 01/14/17 13:42 Dose: 15 mls/hr Metformin HCl (Glucophage*) 500 mg PO BID [facility] Last Admin: 01/16/17 08:11 Dose: Not Given Metoprolol Succinate (Toprol Xl Tab*) 50 mg PO BID [facility] Last Admin: 01/16/17 08:10 Dose: 50 mg Mometasone Furoate/Formoterol Fumar (Dulera 200/5 Mdi*) 1 puff INH BID [facility] Last Admin: 01/16/17 09:28 Dose: 1 puff Morphine Sulfate (Ms Contin(*)) 15 mg PO BID [facility] Last Admin: 01/16/17 08:09 Dose: 15 mg Omeprazole (Prilosec Cap*) 20 mg PO 0600 [facility] Last Admin: 01/16/17 05:39 Dose: 20 mg Oxycodone HCl (Roxycodone Tab*) 15 mg PO Q6H PRN PRN Reason: PAIN Last Admin: 01/15/17 21:18 Dose: 15 mg Sitagliptin Phosphate (Januvia (Nf)) 50 mg PO DAILY [facility] Last Admin: 01/16/17 08:09 Dose: 50 mg Sodium Chloride (Central Saline Flush*) 10 ml CENT\PICC Q12H [facility] Last Admin: 01/16/17 01:58 Dose: Not Given Trazodone HCl (Desyrel Tab*) 25 mg PO BEDTIME PRN PRN Reason: SLEEP Last Admin: 01/15/17 21:24 Dose: 25 mg Venlafaxine HCl (Effexor Xr Cap*) 75 mg PO DAILY [facility] Last Admin: 01/16/17 08:09 Dose: 75 mg Objective: [] Vital Signs Temp Pulse Resp BP Pulse Ox 98.3 F 88 18 121/75 96 01/16/17 08:55 01/16/17 08:55 01/16/17 11:00 01/16/17 08:55 01/16/17 09:31 A&OX3, EOMI, neuro grossly non-focal HRR, no murmur noted LS with increased bronchial sounds of right lung, left clear +1-2 edema bilat. ankles, no weeping Laboratory Results - last 24 hr 01/15/17 01/15/17 01/15/17 05:10 11:58 15:40 Hem Pathologist Commnt POC Glucose (mg/dL) 160 H 155 H Iron TIBC % Saturation Unsat Iron Binding Ferritin Vitamin B12 Folate 01/15/17 01/16/17 01/16/17 21:02 00:15 04:08 Hem Pathologist Commnt POC Glucose (mg/dL) 150 H 152 H 138 H Iron TIBC % Saturation Unsat Iron Binding Ferritin Vitamin B12 Folate 01/16/17 01/16/17 05:45 08:06 Hem Pathologist Commnt POC Glucose (mg/dL) 109 H Iron 22 L TIBC 186 L % Saturation 12 L Unsat Iron Binding 164 Ferritin > 1500.0 H Vitamin B12 313 Folate 5.67 Assessment: []61 yo male with advanced NSCLC admitted with sepsis, slowly improving. Blood culture sensitivities from [place] sensitive, however culture yesterday pending and will defer abx changes to Dr. Daigle who has been consulted. Plan: []1. Check labs in AM 2. Compression hose while awake
[2017-01-16] MEDS: Enoxaparin(*) 40 MG/0.4 ML SYR SUBCUT SCH (14:32)
[2017-01-16] MEDS ORDERED: Cefepime 2 GM in Dextrose(*) 2 GM/50 ML BAG IV SCH (15:00)
[2017-01-16] MEDS: Azithromycin IV(*) 250 MG in NS 0.9% 250 ML* 250 ML IVPB SCH (15:00)
--- NOTE | 2017-01-16 16:34 | PN ---
Progress Note - Progress Note Date of Service: 01/16/17 SOAP: Subjective: CC: pneumonia HPI: 61 year old man with rigors, malaise, cough; BC at [facility] growing S. pneumo. Abnormal CXR. Ongoing chemotherapy. He has more energy and chills are gone today, appetite improving. No fever, rash, or diarrhea. Has port. Objective: [] Vital Signs Temp 36.8 C 01/16/17 08:55 Pulse 88 01/16/17 08:55 Resp 18 01/16/17 11:00 BP 121/75 01/16/17 08:55 Pulse Ox 96 01/16/17 09:31 Intake & Output 01/15/17 01/16/17 01/16/17 18:59 06:59 18:59 Intake Total 7826 114 6602 Balance 9676 039 5771 Intake: IV Fluids 485 NS (0.9%) 485 IVPB 320 65 ABX - AZITHROMYCIN 260 ABX - CEFEPIME 60 65 Oral 1200 0 1390 Other: Estimated Void Medium # Bowel Movements 1 1 Estimated Stool Amount Medium # Voids 1 3 Gen:awake, no distress HEENT:PERRL, MMM Neck:supple Heart:RRR no murmur Lungs:decr BS R base Abd:+BS NTND soft Skin: no rash MSK: no spine tenderness Microbiology 01/15/17 13:43 Aerobic Blood Culture - Preliminary Blood Venous No Growth Day 1 Anaerobic Blood Culture - Preliminary No Growth Day 1 01/15/17 12:06 Aerobic Blood Culture - Preliminary Blood Venous No Growth Day 1 Anaerobic Blood Culture - Preliminary Blood MRSA/MSSA (PCR) - Final Mrsa Negative S.aureus Negative 01/14/17 03:00 Gram Stain - Final Sputum Expectorated Sputum Culture - Final Normal Oralia chest US trace pleural effusion, right Assessment: 1. Invasive pneumococcal infection due to pneumonia, likely post obstructive 2. Lung cancer, chemotherapy 3. sepsis, present on admission, resolved Plan: 1. change cefepime to ceftriaxone (ordered), IV antibiotics while here, then 3 weeks oral cephalosporin.
[2017-01-16] MEDS: oxyCODONE TAB* 5 MG TAB PO PRN (19:34)
[2017-01-16] MEDS: ALPRAZolam TAB* 0.5 MG PO PRN (19:35)
[2017-01-16] MEDS: traZODone TAB* 50 MG TAB PO PRN (21:26)
[2017-01-17] MEDS: Saline FLUSH-CENTRAL* 10 ML SYRINGE CENT\\PICC SCH ×2 (00:29→13:18)
[2017-01-17] MEDS: Omeprazole CAP* 20 MG PO SCH (05:52)
[2017-01-17] MEDS: Mometasone/Formoter 200/5 MDI INH SCH (08:23)
--- NOTE | 2017-01-17 08:51 | PN ---
Progress Note - Progress Note Date of Service: 01/17/17 SOAP: Subjective: CC: pneumonia HPI: 61 year old man with rigors, malaise, cough; BC at [facility] growing S. pneumo. Abnormal CXR. Ongoing chemotherapy. He has more energy and chills are gone today, appetite improving. No fever, rash, or diarrhea. Has port. Objective: [] Vital Signs Temp 36.8 C 01/16/17 08:55 Pulse 88 01/16/17 08:55 Resp 18 01/16/17 11:00 BP 121/75 01/16/17 08:55 Pulse Ox 96 01/16/17 09:31 Intake & Output 01/15/17 01/16/17 01/16/17 18:59 06:59 18:59 Intake Total 3475 820 5369 Balance 3252 945 8887 Intake: IV Fluids 485 NS (0.9%) 485 IVPB 320 65 ABX - AZITHROMYCIN 260 ABX - CEFEPIME 60 65 Oral 1200 0 1390 Other: Estimated Void Medium # Bowel Movements 1 1 Estimated Stool Amount Medium # Voids 1 3 Gen:awake, no distress HEENT:PERRL, MMM Neck:supple Heart:RRR no murmur Lungs:decr BS R base Abd:+BS NTND soft Skin: no rash MSK: no spine tenderness Microbiology 01/15/17 13:43 Aerobic Blood Culture - Preliminary Blood Venous No Growth Day 1 Anaerobic Blood Culture - Preliminary No Growth Day 1 01/15/17 12:06 Aerobic Blood Culture - Preliminary Blood Venous No Growth Day 1 Anaerobic Blood Culture - Preliminary Blood MRSA/MSSA (PCR) - Final Mrsa Negative S.aureus Negative 01/14/17 03:00 Gram Stain - Final Sputum Expectorated Sputum Culture - Final Normal Oralia chest US trace pleural effusion, right Assessment: 1. Invasive pneumococcal infection due to pneumonia, likely post obstructive 2. Lung cancer, chemotherapy 3. sepsis, present on admission, resolved Plan: 1. ceftriaxone day 3, can change to keflex 500 mg PO TID x21 days on 01/18; recheck chest imaging 3 weeks. If going today, give another dose of ceftriaxone before he goes. 35 minutes floor time >50% face to face in counseling regarding follow up antibiotic and imaging plans
[2017-01-17] MEDS: Atorvastatin* 20 MG TAB PO SCH (10:22)
[2017-01-17] MEDS: metFORMIN* 500 MG TAB PO SCH (10:22)
[2017-01-17] MEDS: Metoprolol Succinate XL TAB* 50 MG PO SCH (10:23)
[2017-01-17] MEDS: Morphine TAB Extended Release (*) 15 MG TAB.ER PO SCH (10:23)
[2017-01-17] MEDS: CMC: SitaGLIPtin (NF) 25 MG TAB PO SCH (10:23)
[2017-01-17] MEDS: Venlafaxine EXT RELEASE CAP* 75 MG PO SCH (10:24)
[2017-01-17] MEDS: Furosemide TAB* 20 MG PO SCH (10:24)
[2017-01-17] MEDS: NS 0.9% 1000 ML* 1,000 ML IV SCH (10:27)
[2017-01-17 11:20] VITALS: BP 115/60
[2017-01-17] MEDS: Enoxaparin(*) 40 MG/0.4 ML SYR SUBCUT SCH (13:18)
[2017-01-17] MEDS: oxyCODONE TAB* 5 MG TAB PO PRN (13:41)
== END 2017-01-17 14:20 | disposition home or self-care (01) | DRG 720 ==
LOC: UNDOADMOB 12:04 → OBSVTOIN 12:04 → MED 12:04
PROVIDERS: ADMIT Hospitalist; ATTEND Internal Medicine Hematology & Oncology
PROC: 30233N1 Transfusion of Nonautologous Red Blood Cells into Peripheral Vein, Percutaneous Approach (ICD-10-PCS; principal; 2017-01-14)
DX: A40.3 Sepsis due to Streptococcus pneumoniae (principal); J18.9 Pneumonia, unspecified organism; G93.40 Encephalopathy, unspecified; J90 Pleural effusion, not elsewhere classified; E11.649 Type 2 diabetes mellitus with hypoglycemia without coma; C34.90 Malignant neoplasm of unspecified part of unspecified bronchus or lung; D64.9 Anemia, unspecified; M48.54XA Collapsed vertebra, not elsewhere classified, thoracic region, initial encounter for fracture; J44.0 Chronic obstructive pulmonary disease with (acute) lower respiratory infection; N28.89 Other specified disorders of kidney and ureter; G47.30 Sleep apnea, unspecified; K30 Functional dyspepsia; R60.9 Edema, unspecified; F41.9 Anxiety disorder, unspecified; E78.5 Hyperlipidemia, unspecified; Z88.0 Allergy status to penicillin; Z87.891 Personal history of nicotine dependence; Z87.01 Personal history of pneumonia (recurrent); Z80.1 Family history of malignant neoplasm of trachea, bronchus and lung
CPT/HCPCS: 36415; 76604; 80048; 82272; 82607; 82728; 82746; 83540; 83550; 85014; 85018; 85025; 85060; 86140; 86850; 86900; 86901; 86922; 87040; 87070; 87077; 87150; 87205; 94640; 94760; 99232; A9270-GY; J0456; J0692; J0696; J1642; J1650; P9040

== ENCOUNTER 2017-05-30 08:22 | Observation (INO) | payer BC, OTHER ==
[2017-05-30] MEDS ORDERED: NS 0.9% 1000 ML* 1,000 ML IV ONE (08:40)
[2017-05-30] MEDS ORDERED: Aspirin Low Dose CHEW TAB* 81 MG ONE (09:03)
[2017-05-30] MEDS ORDERED: Aspirin Low Dose CHEW TAB* 81 MG PO ONE (09:06)
[2017-05-30 09:10] LABS: ABS Basophils 0 10^3/ul (0-0.2); ABS Eosinophils 0 10^3/ul (0-0.6); ABS Lymphocytes 0.3 10^3/ul (1.0-4.8); ABS Monocytes 0.1 10^3/ul (0-0.8); ABS Neutrophils 1.8 10^3/ul (1.5-7.7); ABS Nucleated RBC 0 10^3/ul; Eosinophil % 1.6 % (0-6); Hematocrit 27 % (42-52); Hemoglobin 8.5 g/dl (14.0-18.0); Lymphocyte % 12.8 % (25-47); Mean Corpuscular HGB Conc 32 g/dl (31-36); Mean Corpuscular Hemoglobin 26 pg (27-31); Mean Corpuscular Volume 83 fL (80-94); Mean Platelet Volume 8 um3 (7.4-10.4); Nucleated Red Blood Cells % 0.1; Platelet Count 267 10^3/ul (150-450); Red Blood Count 3.26 10^6/ul (4.0-5.4); Red Cell Distribution Width 19 % (10.5-15); White Blood Count 2.3 10^3/ul (3.5-10.8)
[2017-05-30 09:22] LABS: INR 0.98 (0.77-1.02)
[2017-05-30 09:33] LABS: EGFR Non-African American 143.4 (>60)
--- NOTE | 2017-05-30 09:49 | RAD ---
Indication: Chest pain. Single frontal view of the chest performed at 0905 hours was reviewed. Comparison is made with previous exam dated prior chest CT dated April 17, 2017. Mediastinal structures shifted towards the right with atelectasis of the right lung field. Mild interstitial edema is noted. Left lung field appears clear. IMPRESSION: COMPLETE ATELECTASIS OF THE RIGHT HEMITHORAX. LEFT LUNG FIELD IS OTHERWISE. CENTRAL LINE IS IN PLACE.
[2017-05-30] MEDS ORDERED: Iodixanol* (CONTRAST) 320 MG/ML 100 ML SDV IV ONE (10:39)
--- NOTE | 2017-05-30 12:14 | RAD ---
INDICATION: Shortness of breath and tachycardia COMPARISON: Most recent CT of the chest is dated April 17, 2017 TECHNIQUE: Axial source images were acquired following the administration of 90 mL of Visipaque [address] angiographic technique. Coronal and sagittal reconstructed images were constructed and reviewed. FINDINGS: There there are no filling defects in the pulmonary arteries to indicate acute pulmonary embolic disease. There is consolidation almost completely replacing the entire right lung with the exception of the superior most portion of the right lung apex. There is a small pericardial effusion similar in appearance to the previous CT examination. The heart is normal in size. There is no evidence of pericardial effusion. There is no evidence of aortic aneurysm or dissection. There is no mediastinal, hilar, or axillary lymphadenopathy. Degenerative changes of the thoracic spine include loss of intervertebral disc height with stable sclerotic deformity of the superior endplate of T9. Limited views of the upper abdomen show no abnormalities. A fluid density cyst is partially visualized at the right kidney. IMPRESSION: 1. No CT of evidence of pulmonary embolism. 2. Near complete consolidation of the right lung with multiple air bronchograms similar in appearance to the April 17, 2017 CT examination. 3. Small stable pericardial effusion.
--- NOTE | 2017-05-30 14:05 | ED ---
Guido Kulkarni Angela, scribed for Umer Escobar MD on 05/30/17 at 0931 . Palpitations / Dysrhythmia - HPI Summary HPI Summary: This pt is a 61 y/o male presenting to [facility] c/o palpitations since last night. Pt reports that last night as he was going to bed, he laid down and put on his oxygen. Pt notes that suddenly he began to feel palpitations. He then sat up and began to experience diaphoresis. Pt took his heart rate and it was 173 bpm. He denies chest pain. Five minutes later pt reports his diaphoresis stopped and "everything went back to normal." Pt then went back to bed again and had another episode of palpitations with associated diaphoresis. He took his heart rate and reports it was 193 bpm. Pt denies chest pain, swelling in LE. Pt went to [facility] today and had first troponin of 2 and second troponin of 7. Pt signed out AMA to come to [place] [facility] as he was going to be transferred to another facility. Denies hx of CHF. PMHx: sleep apnea, tumor on right lung. Pt comes to [facility] every Sunday for chemotherapy. - History of Current Complaint Chief Complaint: EDChestPainROMI Time Seen by Provider: 05/30/17 08:51 Hx Obtained From: Patient Onset/Duration: Lasting Hours, Still Present Timing: Constant Severity Currently: Moderate Character: Fast Aggravating: Nothing Alleviating: Nothing Associated Signs & Symptoms: Diaphoresis - Allergy/Home Medications Allergies/Adverse Reactions: Allergies Allergy/AdvReac Type Severity Reaction Status Date / Time Penicillins Allergy Swelling Verified 05/18/17 13:37 Home Medications: Home Medications Glimepiride (NF) 4 mg PO QPM 05/30/17 [History Confirmed 05/30/17] Metoprolol Succinate XL TAB* [Toprol XL TAB*] 50 mg PO BID 05/30/17 [History Confirmed 05/30/17] Potassium Chlor TAB* [Klor Con ER TAB*] 20 meq PO DAILY 05/30/17 [History Confirmed 05/30/17] oxyCODONE SR TAB(*) [Oxycontin 20 mg (*)] 20 mg PO BID 05/30/17 [History Confirmed 05/30/17] PMH/Surg Hx/FS Hx/Imm Hx Endocrine/Hematology History: Reports: Hx Diabetes Cardiovascular History: Reports: Hx Hypercholesterolemia, Hx Hypertension Respiratory History: Reports: Hx Asthma, Hx Chronic Obstructive Pulmonary Disease (COPD), Hx Lung Cancer, Hx Sleep Apnea - uses CPAP History: Denies: Hx Dialysis, Hx Renal Disease Sensory History: Denies: Hx Contacts or Glasses, Hx Hearing Aid Opthamlomology History: Denies: Hx Contacts or Glasses Psychiatric History: Reports: Hx Anxiety - Cancer History Cancer Type, Location and Year: Lung cx.-current Hx Chemotherapy: Yes - Surgical History Surgery Procedure, Year, and Place: Hernia repair-date unknown per patient. Shoulder surgery-date unknown per patient Infectious Disease History: No Infectious Disease History: Denies: Traveled Outside the [place] in Last 30 Days - Family History Family History: Mother: lung CA - Social History Alcohol Use: None Substance Use Type: Reports: None Smoking Status (MU): Former Smoker Review of Systems Positive: Skin Diaphoresis. Negative: Fever Positive: Palpitations. Negative: Chest Pain Negative: Edema, Other - arm pain All Other Systems Reviewed And Are Negative: Yes Physical Exam - Summary Physical Exam Summary: General: well-appearing, no pain distress Skin: warm, color reflects adequate perfusion, dry Head: normal Eyes: EOMI, KRISTINA ENT: normal Neck: supple, nontender Respiratory: Decreased breath sounds on the right lung. Cardiovascular: Tachycardic Abdomen: soft, nontender Bowel: present Musculoskeletal: normal, strength/ROM intact. No edema. Neurological: normal, sensory/motor intact, A&O x3 Psychological: affect/mood appropriate Triage Information Reviewed: Yes Vital Signs On Initial Exam: Initial Vitals Temp Pulse Resp BP Pulse Ox 98.3 F 141 20 98/65 96 05/30/17 08:24 05/30/17 08:24 05/30/17 08:24 05/30/17 08:24 05/30/17 08:24 Vital Signs Reviewed: Yes Diagnostics - Vital Signs Vital Signs Temp Pulse Resp BP Pulse Ox 05/30/17 08:24 98.3 F 141 20 98/65 96 - Laboratory Lab Results: Lab Results 05/30/17 05/30/17 Range/Units 08:58 08:58 WBC 2.3 L (3.5-10.8) 10^3/ul RBC 3.26 L (4.0-5.4) 10^6/ul Hgb 8.5 L (14.0-18.0) g/dl Hct 27 L (42-52) % MCV 83 (80-94) fL MCH 26 L (27-31) pg MCHC 32 (31-36) g/dl RDW 19 H (10.5-15) % Plt Count 267 (150-450) 10^3/ul MPV 8 (7.4-10.4) um3 Neut % (Auto) 80.0 (38-83) % Lymph % (Auto) 12.8 L (25-47) % [place] % (Auto) 4.2 (1-9) % Eos % (Auto) 1.6 (0-6) % Baso % (Auto) 1.4 (0-2) % Absolute Neuts (auto) 1.8 (1.5-7.7) 10^3/ul Absolute Lymphs (auto) 0.3 L (1.0-4.8) 10^3/ul Absolute Monos (auto) 0.1 (0-0.8) 10^3/ul Absolute Eos (auto) 0 (0-0.6) 10^3/ul Absolute Basos (auto) 0 (0-0.2) 10^3/ul Absolute Nucleated RBC 0 10^3/ul Nucleated RBC % 0.1 INR (Anticoag Therapy) 0.98 (0.77-1.02) APTT 21.6 L (26.0-36.3) seconds D-Dimer, Quantitative 628 H (Less Than 230) ng/mL Result Diagrams: 05/30/17 08:58 05/30/17 08:58 Lab Statement: Any lab studies that have been ordered have been reviewed, and results considered in the medical decision making process. - Radiology Chest XR Xray Interpretation: Positive (See Comments) - IMPRESSION: complete atelectasis of the right hemithorax. Left lung field is otherwise. Central line is in place. Dr. Obregon has reviewed this radiology report. Radiology Interpretation Completed By: Radiologist - CT Chest/Thorax CTA CT Interpretation: Positive (See Comments) - IMPRESSION: 1. No CT evidence of pulmonary embolism. 2. Near complete consolidation of the right lung with multiple air bronchograms similar in appearance to the April 17, 2017 CT examination. 3. Small stable pericardial effusion. Dr. Escobar has reviewed this radiology report. CT Interpretation Completed By: Radiologist - EKG 08:34 Cardiac Rate: Tachycardia EKG Rhythm: Sinus Tachycardia - at 137 bpm Ectopy: None EKG Interpretation: Borderline low voltage. Course/Dx - Course Course Of Treatment: Medications reviewed. Allergies noted. Lab results show hemoglobin of 8.5, hematocrit of 27, D-dimer of 628, troponin of 0.07, CRP of 29.22, BNP of 211. I discussed pt care with Dr. Rivera. CTA chest was ordered. CTA chest shows 1. No CT evidence of pulmonary embolism. 2. Near complete consolidation of the right lung with multiple air bronchograms similar in appearance to the April 17, 2017 CT examination. 3. Small stable pericardial effusion. I discused results with Dr. Rivera, who has agreed to admit the pt. DISCUSSED WITH DR RIVERA WHO WILL ADMIT THE PATIENT. CRITICAL CARE TIME LESS THAN 30 MINUTES. - Diagnoses Provider Diagnoses: Tachycardia, Elevated troponin - Physician Notifications Discussed Care Of Patient With: Fran Rivera Time Discussed With Above Provider: 09:44 Instructed by Provider To: Other - I discussed pt care with Dr. Rivera, oncologist, who recommends a CTA chest. [12:28] I spoke with Dr. Rivera and discussed CTA results. Dr. Rivera has agreed to admit the pt. Discharge - Discharge Plan Condition: Stable Disposition: ADMITTED TO [facility] Referrals: Wilbert Clay MD [Primary Care Provider] - The documentation as recorded by the Guido brwon Angela accurately reflects the service I personally performed and the decisions made by me, Umer Escobar MD.
[2017-05-30] MEDS ORDERED: oxyCODONE TAB* 5 MG TAB PO PRN (14:36)
[2017-05-30] MEDS: Potassium Chlor TAB* 20 MEQ TAB.ER PO SCH (18:00)
[2017-05-30] MEDS: NS 0.9% 1000 ML* 1,000 ML IV SCH (18:02)
[2017-05-30] MEDS: CMC:Glimepiride (NF) 2 MG TAB PO SCH (18:03)
[2017-05-30] MEDS: oxyCODONE SR TAB(*) 20 MG TAB.SR PO SCH (21:26)
[2017-05-30] MEDS: Metoprolol Succinate XL TAB* 50 MG PO SCH (21:26)
[2017-05-30] MEDS: ALPRAZolam TAB* 0.5 MG PO PRN (21:32)
--- NOTE | 2017-05-30 22:07 | HP ---
HISTORY AND PHYSICAL: DATE OF ADMISSION: 05/30/17 REASON FOR ADMISSION: Palpitations, tachycardia, and dyspnea. HISTORY OF PRESENT ILLNESS: Mr. Ivan is a 61-year-old male with a longstanding history of lung cancer, details as outlined below. He has recently been receiving change in chemotherapy with Navelbine, most recently got week 3 earlier this week. He tolerated it well. He had no nausea or vomiting or other significant symptoms. Mr. Ivan went to bed at about 8 or 9 o'clock last night as is his usual. 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 He has not been using his CPAP recently at nighttime. He was using his oxygen at 2.5 L, does not use at all during day. As he was dozing off to sleep, he noted fluttering in his left chest, became very short of breath and diaphoretic. He walked down to the living room and sat in his recliner, put his pulse ox on his finger and recognized that his heart rate was 173, although his O2 saturations remained greater than 90%. Within less than 15 minutes, the sweating and breathing were better, his heart rate was back down into the 90s and he felt fine. His daughter came over. They decided to have him go back to bed. About 10 p.m., he had a similar set of symptoms with shortness of breath, diaphoresis and fluttering of the chest without chest pain. At this point, on his pulse ox, the heart rate was recorded at 193, again with good oxygenation. He then went to [facility] in [place]. While there, he got a chest x-ray, EKG and labs. He was found to have a pulse in the 130s, reportedly this was sinus tach. While sleeping at about 2 a.m. in the morning, his pulse rate did go up to 150 on the monitor. He reports that he has felt normal and has none of the symptoms that brought him to the hospital last evening. While there, he had some troponins performed. He believes that the first one was 0.02 and the second one 0.07. I do not have records from [facility] to confirm this. The patient signed out AMA from [facility] as he was going to be transferred from there to [facility] and preferred to be at our facility. On arrival here, he feels fine. Pulses in the emergency room run in the 130s. This patient was initially found to be short of breath and a chest CT revealed a large right-sided perihilar mass with truncation of the bronchus intermedius. 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 He was treated with carboplatin and Taxol and radiation therapy concurrently and then 1 dose of carboplatin and Taxol 3 weeks later. He subsequently had progression of disease on nivolumab. In July of 2016, he was started on a dose of Taxol and ramucirumab. In September of 2016, he had a disease that was complicated by admission to the hospital for PCP pneumonia. He subsequently had another admission here in the fall also with pneumonia. In January of 2017, he was found to have progressive disease and was transitioned to gemcitabine and just recently due to issues with the Gemzar requiring steroids and nebulizers because of infusion reactions, he was switched to Navelbine. He has been tolerating the Navelbine well. PAST MEDICAL HISTORY: Otherwise significant for diabetes type 2, better since he has had weight loss, blood sugars usually running 100 in the morning and just over 200 after supper. Hypercholesterolemia, hypertension. Did have a Holter monitor in March of 2016. At that time, his pulse was in the 140s and was seen by Cardiology at that point. Echocardiogram had been obtained in September of 2016 and revealed a normal ejection fraction of 55% to 60% with mild concentric left ventricular hypertrophy, mildly dilated left ventricular chamber size without a significant pericardial effusion. PAST SURGICAL HISTORY: Status post hernia repair in 2015, status post shoulder surgery in 1975. MEDICATIONS: 1. Albuterol inhaler p.r.n. 2. Breo inhaler daily. 3. CPAP, not using. 4. Has stopped using his furosemide. 5. Takes glimepiride 2 mg in the morning and 2 to 4 mg in the evening. 6. Janumet b.i.d. 7. OxyContin 20 mg b.i.d. 8. Oxycodone 15 mg about every 6 hours as needed typically for right flank pain , taking no more than once or twice a day. 9. Potassium chloride 20 mEq daily. 10. Simvastatin 40 mg daily. 11. Trazodone 50 mg at bedtime. 12. Venlafaxine 75 mg daily. 13. Xanax 0.5 mg t.i.d., but typically takes about twice per day. ALLERGIES: PENICILLIN. FAMILY HISTORY: Mother at the age 74 of lung cancer. SOCIAL HISTORY: Mr. Ivan is . He smoked 2 packs a day for 40 years, quit smoking around the time of his original diagnosis of lung cancer. No history of significant drinking. Cocaine use in the past, quitting 7 years ago. He is currently retired due to his underlying lung cancer. REVIEW OF SYSTEMS: Energy level has been slightly worse than usual, but until last night not bad. Weight has been stable recently, although he has lost a total of about 80 pounds overtime. No hot flashes or night sweats until the sweating last evening. No significant bleeding or bruising. Breathing in general has been reasonably good until last evening. Heart: Symptoms as discussed above. GI: No nausea, vomiting, diarrhea, constipation, or any GI bleeds. No major heartburn or reflux. No significant urinary symptoms. Ongoing right rib and right back pain. No rashes. Neurologic: No significant findings. PHYSICAL EXAMINATION GENERAL: A 61-year-old male, in no acute distress. VITAL SIGNS: Blood pressure 118/77, pulse in the 130s, afebrile, O2 saturation 93% to 97% on room air. HEENT: PERRL, EOMI. No erythema or exudates. Mouth is reasonably moist. No palpable cervical, supraclavicular, or axillary adenopathy. LUNGS: Decreased breath sounds throughout the right lung, clear on the left. HEART: Tachycardia without murmurs, rubs, or gallops. ABDOMEN: Soft, nontender without masses or organomegaly. EXTREMITIES: No clubbing, cyanosis, or edema. BACK: No CVA or spinal tenderness. Mild tenderness over the right lateral ribcage. NEUROLOGIC: Exam is without focal deficits. DIAGNOSTIC STUDIES/LAB DATA: CBC: White count 2300, hematocrit 27, hemoglobin 8.5, platelet count 267,000 with essentially normal differential. Chemistry studies: Sodium 138, potassium 3.9, chloride 100, bicarb 21, BUN 14, creatinine 0.58, glucose 162, magnesium 1.8. Troponin 0.07 and on repeat 0.10. BNP 211. TSH 3.7. CT scan of the chest reveals very little change in the massive right-sided involvement with a near complete consolidation and opacification of the right lung field with multiple air bronchograms, little change from 6 weeks ago. There is a small pericardial effusion, which is called stable, I would question whether this might be slightly increased from before. There is no evidence for pulmonary embolism. There is a sclerotic lesion of T9. No adenopathy is noted. EKG reveals sinus tachycardia. IMPRESSION: 1. A 61-year-old male with episodes of rapid heart rate and fluttering in the chest, which sounds likely it could be episodes of supraventricular tachycardia occurring twice last evening and now remaining with tachycardia, although sinus tachycardia. He often times runs pulses in the 100 to 115 range in the office, but not 130s. He is not hypoxic. There are no significant changes on his EKG other than tachycardia. His troponins are mildly elevated at 0.07 and 0.10. I am concerned that there could be a slight increase in his pericardial effusion as I review his chest CT. I have asked the patient to remain in the hospital on observation for us to monitor his rhythm over the next 24 hours. Serial troponins will be obtained. The patient will be seen in consultation by Cardiology and also we will have a repeat echocardiogram to compare to the echo previously done in September of 2016. It is certainly possible that if the effusion is bigger, that this is a contributing factor. It is also possible that he could be developing some coronary artery disease or that symptoms are unrelated to underlying coronary artery disease. 2. Lung cancer. Disease has not really progressed recently and there is only change to his current chemotherapy from Gemzar to Navelbine due to intolerance to the Gemzar. In general, his disease has been quite stable recently. 3. Diabetes type 2. The patient will remain on his usual medications and blood sugars will be monitored. 4. DVT prophylaxis with Lovenox. 5. Pain control seems adequate with his typical doses of OxyContin and oxycodone. [id number]/[facility] #: [id number] [facility]
[2017-05-31] MEDS: NS 0.9% 1000 ML* 1,000 ML IV SCH ×2 (01:14→08:47)
[2017-05-31] MEDS: CMC:Glimepiride (NF) 2 MG TAB PO SCH ×3 (07:31→20:37)
[2017-05-31 07:33] LABS: ABS Basophils 0 10^3/ul (0-0.2); ABS Eosinophils 0.1 10^3/ul (0-0.6); ABS Lymphocytes 0.3 10^3/ul (1.0-4.8); ABS Monocytes 0.1 10^3/ul (0-0.8); ABS Neutrophils 1.1 10^3/ul (1.5-7.7); ABS Nucleated RBC 0 10^3/ul; Eosinophil % 3.6 % (0-6); Hematocrit 25 % (42-52); Hemoglobin 7.7 g/dl (14.0-18.0); Lymphocyte % 20.9 % (25-47); Mean Corpuscular HGB Conc 31 g/dl (31-36); Mean Corpuscular Hemoglobin 26 pg (27-31); Mean Corpuscular Volume 83 fL (80-94); Mean Platelet Volume 8 um3 (7.4-10.4); Nucleated Red Blood Cells % 0.1; Platelet Count 208 10^3/ul (150-450); Red Blood Count 2.96 10^6/ul (4.0-5.4); Red Cell Distribution Width 20 % (10.5-15); White Blood Count 1.6 10^3/ul (3.5-10.8)
[2017-05-31 07:42] LABS: EGFR Non-African American 162.7 (>60)
[2017-05-31] MEDS ORDERED: Perflutren Lipid Microsphere* 3 ML VIAL ONE (08:27)
[2017-05-31] MEDS: oxyCODONE SR TAB(*) 20 MG TAB.SR PO SCH ×2 (09:06→20:37)
[2017-05-31] MEDS: Atorvastatin* 20 MG TAB PO SCH (09:06)
[2017-05-31] MEDS: Metoprolol Succinate XL TAB* 50 MG PO SCH ×2 (09:06→20:37)
[2017-05-31] MEDS: Potassium Chlor TAB* 20 MEQ TAB.ER PO SCH (09:07)
[2017-05-31] MEDS: ALPRAZolam TAB* 0.5 MG PO PRN ×2 (09:12→20:37)
--- NOTE | 2017-05-31 10:08 | ECHO ---
Patient: ISMA HEADLEY [facility] Rec#: [id number] : 1955 Date: 05/31/2017 Age: 61y Height: 182.9 cm / 72.0 in Weight: 99.8 kg / 220.0 lbs Sex: M BSA: 2.2 Room#: [facility] Admit Date#: 05/30/2017 Type: Inpatient Referring: Fran Rivera MD Reading: Ban Arreola MD Sleeve Wheel Maker: Bre Syed RN RDCS Transthoracic Echocardiogram Indication: Pericardial effusion BP: 121/80 HR: 124 Rhythm: Tachycardia Findings History: HTN, HLD, DM, COPD, lung cancer, chemotherapy Technical Comments: The study is technically limited due to poor acoustic windows. The study is technically limited due to patient body habitus. The study is technically limited due to the patient's history of COPD. Completed at 0925. Left Ventricle: The left ventricular chamber size is normal. Mild to moderate concentric left ventricular hypertrophy is observed. Global left ventricular wall motion and contractility are within normal limits. Left ventricular systolic function is at the lower limits of normal. The estimated ejection fraction is 45-50%. closer to 50%. The assessment of diastolic function is non-diagnostic. Left Atrium: The left atrium is slightly dilated. Right Ventricle: The right ventricular cavity size is normal. The right ventricular global systolic function is normal. Right Atrium: The right atrium is not well visualized. Aortic Valve: The aortic valve is trileaflet. The aortic valve leaflets are mildly thickened. There is no evidence of aortic regurgitation. There is no evidence of aortic stenosis. Mitral Valve: The mitral valve leaflets appear normal. There is no evidence of mitral regurgitation. There is no evidence of mitral stenosis. Tricuspid Valve: The tricuspid valve structure is not well visualized. There is no evidence of tricuspid valve regurgitation. There is no tricuspid stenosis. Pulmonic Valve: The pulmonic valve structure is not well visualized. Pericardium: There is a moderate pericardial effusion.0.8cm anteriorly, 1.3cm posteriorly in the MARLENE, 0.7cm with a 1.0cm echodense layer anteriorly and 1.1cm posteriorly in the PSA view and 1.6cm adjacent to the RV, 1.3cm at the apex and 1.5cm adjacent to the lateral wall in the A4C view. There are no signs of significant hemodynamic compromise.M mode of RV and LV reviewed. The mitral inflow peak variation is 7%, the LVOT velocity variation is 7% and the tricuspid inflow peak variation is 29%. The IVC is dilated with little collapse with sniff. There is a circumferential pericardial effusion. The pericardial effusion is fluid filled.a few areas of organized fibrous appearing material (mixed echogenicity) noted on the epicardium surrounded by pericardial fluid. Aorta: The ascending aorta is not well visualized. There is no dilatation of the aortic arch. There is no dilation of the aortic root. Pulmonary Artery: The main pulmonary artery is not well visualized. Venous: The inferior vena cava is dilated. There is less than 50% respiratory change in the inferior vena cava dimension. Contrast: Definity was used to optimize study. A total of 3 ml of diluted Definity was given IV. Conclusions Mild to moderate concentric left ventricular hypertrophy is observed. Global left ventricular wall motion and contractility are within normal limits. Left ventricular systolic function is at the lower limits of normal. The estimated ejection fraction is 50%. The right ventricular global systolic function is normal. The aortic valve leaflets are mildly thickened with normal function. There is a moderate pericardial effusion. There are no signs of significant hemodynamic compromise, but variation in tricuspid inflow suggests some effect. Comparedwith prior study of 09/14/16, LVH unchanged, EF previously 55-60% (current change may reflect less filling), pericardial effusion is new. Measurements Name Value Normal Range RVDdMajor (2D) 3.2 cm (2.2 - 4.4) IVSd (2D) 1.3 cm (0.6 - 1) LVPWd (2D) 1.4 cm (0.6 - 1) LVIDd (2D) 4.5 cm (3.6 - 5.4) LVIDs (2D) 2.7 cm - LV FS (2D) 39 % (25 - 45) Aortic Annulus 2.4 cm (1.4 - 2.6) Ao root diameter (2D) 3.4 cm (2.1 - 3.5) Aortic arch 2.4 cm (1.8 - 3.4) LA dimension (AP) 2D 3.7 cm (2.3 - 3.8) LAd ISD 4CH 5.9 cm (2.9 - 5.3) LA ISD 4CH W 4.5 cm (2.5 - 4.5) Name Value Normal Range LA ESV SP 4CH (A/L) 72 ml - LA ESV SP 2CH (A/L) 69 ml - LA ESV BP (A/L) 73 ml - LA ESV BP (A/L) index 32.9 ml/m2 - LA ESV SP 4CH (MOD) 68 ml - LA ESV SP 2CH (MOD) 65 ml - Name Value Normal Range MV E-wave Vmax 1.1 m/sec - MV deceleration time 111 msec - Name Value Normal Range AV Vmax 1.3 m/sec - AV VTI 20.1 cm - AV peak gradient 6.7 mmHg - AV mean gradient 3.8 mmHg - LVOT Vmax 0.94 m/sec - LVOT VTI 18.5 cm - LVOT peak gradient 3.5 mmHg - LVOT mean gradient 2.1 mmHg - MODESTO Vmax 0.59 m/sec - Name Value Normal Range IVC diameter 2.7 cm -
--- NOTE | 2017-05-31 15:55 | PN ---
Progress Note - Progress Note Date of Service: 05/31/17 SOAP: Subjective: [ 2 days prior to admission developed fast HR, 2 episodes HR to 170 and then 193. Self resolved but has been running 130s since then. Normally runs faster HR 100-115 but not this fast. No chest pain, no SOB, no nausea, diaphoresis. Seen at outside hospital ER and recommended admission, he left and came to [facility]. PMHx: Sq cell lung cancer, has been stable on 3rd line chemotherapy, Navelbine. Alprazolam (Xanax Tab*) 0.5 mg PO TID PRN PRN Reason: ANXIETY Last Admin: 05/31/17 09:12 Dose: 0.5 mg Atorvastatin Calcium (Lipitor*) 20 mg PO DAILY [facility] Last Admin: 05/31/17 09:06 Dose: 20 mg Glimepiride (Glimepiride (Nf)) 2 mg PO BID WITH MEALS RILEY PRN Reason: Protocol Last Admin: 05/31/17 07:31 Dose: Not Given Metoprolol Succinate (Toprol Xl Tab*) 50 mg PO BID [facility] Last Admin: 05/31/17 09:06 Dose: 50 mg Oxycodone HCl (Oxycontin(*)) 20 mg PO BID [facility] Last Admin: 05/31/17 09:06 Dose: 20 mg Oxycodone HCl (Roxycodone Tab*) 15 mg PO Q6H PRN PRN Reason: PAIN Potassium Chloride (Klor Con Er Tab*) 20 meq PO DAILY [facility] Last Admin: 05/31/17 09:07 Dose: 20 meq Objective: [] Vital Signs Temp Pulse Resp BP Pulse Ox 97.9 F 126 18 105/74 96 05/31/17 11:22 05/31/17 11:22 05/31/17 11:43 05/31/17 11:22 05/31/17 14:50 No distress HEENT - no oral lesions, no thrush, no JVD Decreased BS on right, air movement on left, no wheezing RRR S1S2 at 120, no murmur +BS NT, ND no HSM +1 BATSHEVA both sides, warm. Echo - EF 50%, effusion with some effect on RV. Assessment: []61 year old with hilar mass, squamous cell cancer and long standing pericardial effusion. Two episodes of SVT and now a chorinic tachycardia. There are multiple reasons for his tachycardia, anemia, effusion, respiratory compromise but non are new this past week. Two episodes of very rapid and symptomatic tachycardia may be overlapping arrhythmia. Plan: []1. Tachycaridia. Can improve his anemia, that is the easiest component to improve. Anemia is from chronic disease and chemotherapy. Will transfuse 2 UPRBC. Will wait for cardiology input before starting additional rate control. 2. Normal K, will check Mg 3. He has been stable on Navelbine. Chemotherapy on hold. 4. Possible discharge in am
[2017-06-01 05:03] LABS: ABS Basophils 0 10^3/ul (0-0.2); ABS Eosinophils 0.1 10^3/ul (0-0.6); ABS Lymphocytes 0.4 10^3/ul (1.0-4.8); ABS Monocytes 0.1 10^3/ul (0-0.8); ABS Neutrophils 1.2 10^3/ul (1.5-7.7); ABS Nucleated RBC 0 10^3/ul; Eosinophil % 3.6 % (0-6); Hematocrit 28 % (42-52); Lymphocyte % 24.5 % (25-47); Mean Corpuscular HGB Conc 32 g/dl (31-36); Mean Corpuscular Hemoglobin 27 pg (27-31); Mean Corpuscular Volume 84 fL (80-94); Mean Platelet Volume 8 um3 (7.4-10.4); Nucleated Red Blood Cells % 0.1; Platelet Count 188 10^3/ul (150-450); Red Blood Count 3.35 10^6/ul (4.0-5.4); Red Cell Distribution Width 19 % (10.5-15); White Blood Count 1.8 10^3/ul (3.5-10.8)
[2017-06-01 05:18] LABS: EGFR Non-African American 149.3 (>60)
[2017-06-01] MEDS: Metoprolol Succinate XL TAB* 50 MG PO SCH (08:34)
[2017-06-01] MEDS: oxyCODONE SR TAB(*) 20 MG TAB.SR PO SCH (08:34)
[2017-06-01] MEDS: Atorvastatin* 20 MG TAB PO SCH (08:34)
[2017-06-01] MEDS: Potassium Chlor TAB* 20 MEQ TAB.ER PO SCH (08:35)
[2017-06-01] MEDS: CMC:Glimepiride (NF) 2 MG TAB PO SCH (08:35)
[2017-06-01] MEDS: ALPRAZolam TAB* 0.5 MG PO PRN (08:35)
[2017-06-01] MEDS ORDERED: Digoxin IV* 0.5 MG/2 ML AMP (0.25 MG/ML) IV SLOW PU ONE (09:18)
--- NOTE | 2017-06-01 09:34 | CONSULT ---
Subjective Date of Service: 06/01/17 Interval History: Admission Date: 05/30/17 Date of consult 06/01/2017 Provider: Oncology service Oncologist: Dr. Gonzáles CC: Palpitations, tachycardia, and dyspnea. Reason for consult: Likely SVT, pericardial effusion HISTORY OF PRESENT ILLNESS: Mr. Ivan is a 61-year-old male with a history of lung cancer as described below and extrapolated from H+P with by Dr. Rivera. I had evaluated him 02/2016 for PVC's. He has potential tumor invasion of the interatrial wall on an MRI from 11/2015 that alos showed possible invasion around the left atrial wall, occlusion of the right superior pulmonary vein and right middle lobe pulmonary artery. These findings have never been appreciated on echocardiogram. He had no pericardial effusion on an echocardiogram from 09/2016. A CT from 04/2017 noted a pericardial effusion. He states he has actually been doing well recently. His breathing has been good. No signficant edema, exertional CP, presyncope or syncope. The night before admission he went to go to bed and had palpitatios, sweating, 02 sats were ok and HR was 173 bpm. Within 15 minutes HR into 90's and symptoms resolved. [place] better and happened again with HR 193 bpm with dyspnea and palpitations and again resolved. His HR usually runs at 120-130 bpm at times during the day and this concerns him but he has no symptoms with this. Went to [facility] and HR was sinus tachcyardia 130's with HR up to 150's while sleeping monitor. He had a mildly detectable troponin level likely from demand related ischemia from the tachyarrhythmia but no evidence of a type 1 plaque disruption [place]. EKG on admission showed no ischemic changes with a HR of 137 bpm and sinus tachycardia. Echocardiogram I reviewed appeared to be low normal LVEF in the setting of tachycardia, moderate sized circumferential pericardial effusion with some evidence of chronicity and no high level evidence of hemodynamic significance. PAST MEDICAL HISTORY: diabetes type 2 Hypercholesterolemia hypertension. 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 Cardona, unresectable PAST SURGICAL HISTORY: Status post hernia repair in 2015, status post shoulder surgery in 1975. ALLERGIES: PENICILLIN. FAMILY HISTORY: Mother at the age 74 of lung cancer. SOCIAL HISTORY: Mr. Ivan is . He smoked 2 packs a day for 40 years, quit smoking around the time of his original diagnosis of lung cancer. No history of significant drinking. He is currently retired due to his underlying lung cancer. Medications Active Medications: Alprazolam (Xanax Tab*) 0.5 mg PO TID PRN PRN Reason: ANXIETY Last Admin: 06/01/17 08:35 Dose: 0.5 mg Atorvastatin Calcium (Lipitor*) 20 mg PO DAILY [facility] Last Admin: 06/01/17 08:34 Dose: 20 mg Digoxin (Digoxin Iv*) 0.25 mg IV SLOW PU ONCE ONE Stop: 06/01/17 09:19 Digoxin (Lanoxin Tab*) 0.125 mg PO DAILY [facility] Glimepiride (Glimepiride (Nf)) 2 mg PO BID WITH MEALS [facility] PRN Reason: Protocol Last Admin: 06/01/17 08:35 Dose: 2 mg Heparin Sodium (Porcine) (Heparin Flush Port (Ivad)) 5 ml FLUSH 0600,1800 [facility] PRN Reason: Protocol Last Admin: 06/01/17 04:43 Dose: 5 ml Metoprolol Succinate (Toprol Xl Tab*) 50 mg PO BID [facility] Last Admin: 06/01/17 08:34 Dose: 50 mg Oxycodone HCl (Oxycontin(*)) 20 mg PO BID [facility] Last Admin: 06/01/17 08:34 Dose: 20 mg Oxycodone HCl (Roxycodone Tab*) 15 mg PO Q6H PRN PRN Reason: PAIN Potassium Chloride (Klor Con Er Tab*) 20 meq PO DAILY [facility] Last Admin: 06/01/17 08:35 Dose: 20 meq Home Medications: ALPRAZolam TAB* [Xanax TAB*] 0.5 mg PO TID PRN 08/29/16 [History Confirmed 05/30] Glimepiride (NF) 2 mg PO QAM 08/29/16 [History Confirmed 05/30/17] Simvastatin TAB(NF) [Zocor 20 MG (NF)] 40 mg PO DAILY 08/29/16 [History Confirmed 05/30/17] Sitaglipt/Metform (NF) [Janumet (NF)] 1 tab PO BID 08/29/16 [ History Confirmed 05/30/17] Venlafaxine EXT RELEASE CAP* [Effexor Xr CAP*] 75 mg PO DAILY 08/29/16 [History Confirmed 05/30/17] oxyCODONE TAB* [Roxycodone TAB 5 mg*] 15 mg PO Q6H PRN 08/29/16 [History Confirmed 05/30/17] traZODone TAB* [Desyrel TAB*] 25 mg PO BEDTIME PRN #60 tab 09/12/16 [Rx Confirmed 05/30/17] Glimepiride (NF) 4 mg PO QPM 05/30/17 [History Confirmed 05/30/17] Metoprolol Succinate XL TAB* [Toprol XL TAB*] 50 mg PO BID 05/30/17 [History Confirmed 05/30/17] Potassium Chlor TAB* [Klor Con ER TAB*] 20 meq PO DAILY 05/30/17 [History Confirmed 05/30/17] oxyCODONE SR TAB(*) [Oxycontin 20 mg (*)] 20 mg PO BID 05/30/17 [History Confirmed 05/30/17] Review of Systems - Measurements Intake and Output: Intake and Output Last 24 Hours 05/30/17 05/31/17 06/01/17 06/02/17 06:59 06:59 06:59 06:59 Intake Total 999 3300 Balance 999 3300 Weight 218 lb 12.8 oz Intake: IV Fluids 999 1149 NS (0.9%) 999 Oral 0 1850 Packed Cells 301 Other: Estimated Void Medium Medium # Bowel Movements 0 0 # Voids 4 4 - Review of Systems Constitutional Symptoms: Positive: Weight Loss, Fatigue Dermatology: Negative: Rash, Skin Lesions HEENT: Negative: Change in Hearing, Vertigo Eyes: Negative: Change in Vision, Double Vision Thyroid: Negative: Goiter, Thyroid Nodule, Constipation, Palpitations, Weight Loss, Weight Gain Pulmonary: Positive: Cough, Shortness of Breath, COPD, Home Oxygen Negative: Hemoptysis Cardiology: Positive: Chest Pain, Shortness of Breath, Palpitations Negative: Swelling of Ankles, Peripheral Vascular Dis, Edema, Faintness, Syncope, Claudication, Paroxysmal Nocturnal Dyspnea, Orthopnea Gastroenterology: Negative: Abdominal Pain, Nausea, Vomiting, Anorexia, Difficulty Swallowing, Constipation Genital - Urinary: Negative: Dysuria, Hematuria Musculoskeletal: Negative: Joint Pain, Joint Stiffness, Osteoporosis Endocrinology: Negative: Thyroid Problems, Adrenal Problems, Gonadal Problems, Polydipsia, Polyuria Hematologic/Lymphatic: Positive: Anemia Negative: Easy Brusing, Hx Leukemia, Hx Lymphoma, Use of Anticoagulant, Use of Antiplatelet Drugs Neurology: Negative: Headaches, Migraines, Change in Vision, Diplopia, Dizziness, Change in Balancing, Change in Coordination, Change in Memory, Change in Speech , Change in Sphincter Function, Change in Walking, Numbness\\Paresthesiae, Unexplained Weakness, Hx of Stroke\\TIA, Hx Seizures Psychiatry: Negative: Unusual Anxiety, Suicidal Ideation, Hypomania Allergic/Immunologic: Positive: Immunocompromise Negative: Hx HIV, Swollen Glands Lymph Nodes Review of Systems Statement: All other review of systems negative, unless stated above. Objective Vital Signs: Temp Pulse Resp BP Pulse Ox 98.3 F 101 18 119/70 94 06/01/17 08:25 06/01/17 08:25 06/01/17 08:35 06/01/17 08:25 06/01/17 08:25 Oxygen Devices in Use Now: None Appearance: pleasant, nad Ears/Nose/Mouth/Throat: Clear Oropharnyx, Mucous Membranes Moist Neck: Trachea Midline, - - uncertain jvp Respiratory: Symmetrical Chest Expansion and Respiratory Effort, - - decreased breath sound right base Cardiovascular: RRR, - - heart sounds well appreciated with +s1/s2 Abdominal: NL Sounds; No Tenderness; No Distention Extremities: No Edema, No Clubbing, Cyanosis Skin: No Rash or Ulcers Neurological: Alert and Oriented x 3 Laboratory Results: 06/01/17 04:45 06/01/17 04:45 INR (Anticoag Therapy) 0.98 (0.77-1.02) 05/30/17 08:58 APTT 21.6 seconds (26.0-36.3) L 05/30/17 08:58 Total Bilirubin 0.70 mg/dL (0.2-1.0) 06/01/17 04:45 AST 9 U/L (13-39) L 06/01/17 04:45 ALT 17 U/L (7-52) 06/01/17 04:45 Alkaline Phosphatase 92 U/L (34-104) 06/01/17 04:45 CK-MB (CK-2) 2.6 ng/mL (0.6-6.3) 05/30/17 08:58 B-Natriuretic Peptide 211 pg/mL (-100) H 05/30/17 08:58 Total Protein 6.0 g/dL (6.4-8.9) L 06/01/17 04:45 Albumin 3.2 g/dL (3.2-5.2) 06/01/17 04:45 Globulin 2.8 g/dL (2-4) 06/01/17 04:45 Albumin/Globulin Ratio 1.1 (1-3) 06/01/17 04:45 TSH 2.66 mcIU/mL (0.34-5.60) 05/31/17 07:03 05/30/17 05/30/17 14:39 21:58 Troponin I 0.06 H* 0.06 H* Diagnostic Imaging: as per H+P from Dr. Rivera "CT scan of the chest reveals very little change in the massive right-sided involvement with a near complete consolidation and opacification of the right lung field with multiple air bronchograms, little change from 6 weeks ago. There is a small pericardial effusion, which is called stable, I would question whether this might be slightly increased from before. There is no evidence for pulmonary embolism. There is a sclerotic lesion of T9. No adenopathy is noted" Holter 03/2016: Min HR 84 bpm, avg 97 bpm, max 114 bpm, 6300 PVC's (appears monomorphic), no arrhythmias or signficant pauses EKG Data: 05/30/2017: Sinus tachycardia 137 bpm, no ischemic changes Assessment/Plan Denis Ivan is a 61 year old man with a complex lung cancer history as above including potential direct myocardial involvement admitted with symptoms suggestive of SVT and found with a new moderate sized pericardial effusion without any historical or echocardiographic evidence definitively suggestive of significant tamponade physiology. - Continue home metoprolol dose - Keep K 4 or greater and Mg 2 or greater - Give digoxin 250 mcg IV x 1 now and then 125 mcg PO daily (ordered). Check a digoxin level in 2 weeks, would try to keep level 0.8 or less - Effusion almost certainly malignant, would likely have high rate of recurrence with pericardiocentesis. Pericardial window may be higher risk due to prior possible direct myocardial involvement and he does have good insight about this and would not want this procedure unless absolutely necessary, especially because he has been feeling relatively well recently other than these arrhythmia episodes. There is some echo evidence of chronicity to the effusion and it was present on a CT scan from last month. I would repeat an echocardiogram in 1 month as long as no new concerning symptoms (would then repeat earlier). If pericardial window performed, I think it should be performed by a dedicated cardiac/thoracic surgeon. - Discussed with Dr. Cardona Thank you for allowing me to participate in the cardiovascular care of this patient. Please do not hesitate to contact me with questions or concerns.
[2017-06-01 13:27] VITALS: BP 114/72
[2017-06-02] MEDS ORDERED: Digoxin TAB* 0.125 MG PO SCH (09:00)
--- NOTE | 2017-06-02 14:46 | DS ---
DISCHARGE SUMMARY: DATE OF ADMISSION: 05/30/17 DATE OF DISCHARGE: 06/01/17 DISCHARGE DIAGNOSES: 1. Supraventricular tachycardia. 2. Pericardial effusion. 3. Squamous cell lung cancer in mediastinum. HOSPITAL COURSE: He came after 2 episodes of heart rate from 170 to 190 as well as a persistent tachycardia with a heart rate of 130. Other than palpitations with his tachycardia, he had felt generally well. Breathing has been stable. On admission, he had a normal thyroid, noted to have marked anemia. He had a CT angiogram that did not show clear progression of his disease or its invasion into the mediastinal and pericardial structures. There was a question of an increasing pericardial effusion. Looking back at prior scans, the effusion was not present in September or February, but then was seen on the April CT scan, slightly increased on CT scan from 05/30/17. He had an echocardiogram on 05/30/17 that showed a moderate sized pericardial effusion, there was mild compression of the right ventricle with possible impaired filling but no tamponade physiology. The ejection fraction was 45% to 50% and he had a dilated left atrium, no significant valvular disease. He was admitted and continued on his metoprolol at 100 mg per day, IVF. His hemoglobin went down to 7.7. He was given 1 unit of packed cells, which increased the hemoglobin to 9.0. Heart rate decreased from 130 down to [address] Chery was consulted and case was discussed extensively today. By echocardiogram, the pericardial effusion is new from September and appears to be progressive on the CT scan. There is viscous material and fibrosis giving doubt to the efficacy of the pericardial window and he felt if done, it should be in [place]. The episodic supraventricular tachycardia was from tumor adjacent to the conduction system. We decided to start him on digoxin at a relatively low dose of 0.125 mg per day with a goal of the digoxin level of 0.8 or less. He will continue on the metoprolol and will be discharged home. He will follow up with Dr. Gonzáles on Sunday to discuss reevaluation in [place] for pericardial window. DISCHARGE MEDICATIONS: 1. Digoxin 0.125 mg daily. 2. Xanax 0.5 mg 3 times a day as needed. 3. Oxycodone 15 mg q. 6 p.r.n. 4. Effexor XR 75 mg daily. 5. Simvastatin 40 mg a day. 6. Janumet one twice a day. 7. Glimepiride 2 mg every morning. 8. Trazodone 25 mg at bedtime as needed. 9. OxyContin SR 20 mg p.o. b.i.d. 10. Potassium chloride 20 mEq daily. 11. Metoprolol 50 mg twice a day. He will call me over the weekend with any additional questions or concerns. [id number]/[facility] #: [id number] [facility] SOUTHAMPTON HOSPITALTammie
== END 2017-06-01 13:24 | disposition home or self-care (01) ==
LOC: ED 08:22 → MEDTELE 14:32
PROVIDERS: ADMIT Internal Medicine Hematology & Oncology; ATTEND Internal Medicine Hematology & Oncology
DX: I47.1 Supraventricular tachycardia (principal); J90 Pleural effusion, not elsewhere classified; C34.90 Malignant neoplasm of unspecified part of unspecified bronchus or lung; C78.1 Secondary malignant neoplasm of mediastinum; E11.9 Type 2 diabetes mellitus without complications; D64.9 Anemia, unspecified; I10 Essential (primary) hypertension; E78.00 Pure hypercholesterolemia, unspecified; R74.8 Abnormal levels of other serum enzymes; I51.7 Cardiomegaly; I31.3 Pericardial effusion (noninflammatory); Z79.84 Long term (current) use of oral hypoglycemic drugs; Z87.891 Personal history of nicotine dependence; Z79.899 Other long term (current) drug therapy; Z88.0 Allergy status to penicillin; R61 Generalized hyperhidrosis; R06.02 Shortness of breath
CPT/HCPCS: 36415; 36430; 71045; 71275; 80048; 80053; 82550; 82553; 83605; 83690; 83735; 83880; 84443; 84484; 85025; 85379; 85610; 85730; 86140; 86850; 86900; 86901; 86922; 93005; 93306; 94760; 96361; 96374; 99217; 99220; 99225; 99232; 99284; A9270-GY; C8929; G0378; J1160; J1642; P9040; Q9967